=== PATIENT | female | born 1975 | race Caucasian/White ===

== ENCOUNTER 2017-10-05 19:53 | Inpatient (IN) | payer OTHER ==
[2017-10-05 20:25] VITALS: BMI 31.4
[2017-10-05] MEDS ORDERED: MELATONIN 5 MG TABLETS PO PRN (22:00)
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
[2017-10-05] MEDS ORDERED: P-EPHED 60MG/TRIPROLIDI 2.5MG TABLET PO PRN (23:57)
[2017-10-05] MEDS ORDERED: MENTHOL/PHENOL 1 EACH UD MM PRN (23:57)
[2017-10-05] MEDS ORDERED: MAG HYDROX/AL HYDROX/SIMETH 30 ML UNIT-DOSE CUP PO PRN (23:57)
[2017-10-05] MEDS ORDERED: guaiFENesin/D-METHORPHAN HB 10 ML UNIT-DOSE CUPS PO PRN (23:57)
[2017-10-05] MEDS ORDERED: MAGNESIUM HYDROX 2400MG/30ML ORAL SUSPENSION 30 ML CUP PO PRN (23:57)
[2017-10-05] MEDS ORDERED: NICOTINE POLACRILEX 2 MG GUM BC PRN (23:57)
[2017-10-05] MEDS ORDERED: MAGNESIUM CITRATE 300 ML BOTTLE PO PRN (23:57)
[2017-10-06] MEDS ORDERED: cloNIDine HCL 0.1 MG TABLET PO ONE (02:27)
[2017-10-06] MEDS: chlordiazePOXIDE HCL 25 MG CAPSULE PO PRN ×2 (02:36→11:17)
[2017-10-06] MEDS: chlordiazePOXIDE HCL 25 MG CAPSULE PO SCH ×4 (06:15→22:10)
[2017-10-06] MEDS: CYCLOBENZAPRINE HCL 5 MG TABLET PO SCH ×3 (07:15→22:10)
[2017-10-06] MEDS: GABAPENTIN 400 MG CAPSULE (FP) PO SCH ×3 (07:15→22:10)
--- NOTE | 2017-10-06 08:47 | EKG ---
Test Reason : Blood Pressure : / mmHG Vent. Rate : 092 BPM Atrial Rate : 092 BPM P-R Int : 148 ms QRS Dur : 088 ms QT Int : 390 ms P-R-T Axes : 060 001 041 degrees QTc Int : 482 ms NORMAL SINUS RHYTHM PROLONGED QT ABNORMAL ECG NO PREVIOUS ECGS AVAILABLE Confirmed by DIONI BERNAL, HARITHA ([id number]) on 10/06/2017 8:47:52 AM Referred By: Rigoberto Leonard Confirmed By:HARITHA WHEATLEY MD
[2017-10-06] MEDS ORDERED: HYDROCORTISONE 2.5% TOPICAL CREAM 30 GM TUBE TP SCH (10:00)
[2017-10-06 10:07] LABS: HEMOGLOBIN 11.1 GM/dL (10.7-15.3); MCH 29.4 pg (25.7-33.7); MCHC 33.7 g/dl (32.0-36.0); MEAN CELL VOLUME 87.4 fl (80-96); MEAN PLT VOLUME 7.7 fl (7.5-11.1); PLATELET COUNT 237 K/MM3 (134-434); RBC 3.77 M/mm3 (3.60-5.2); RDW 19.1 % (11.6-15.6); WHITE BLOOD COUNT 9.1 K/mm3 (4.0-10.0)
--- NOTE | 2017-10-06 10:07 | PN ---
S CIWA - CIWA Score Nausea/Vomitin Muscle Tremors: 3 Anxiety: 3 Agitation: 3 Paroxysmal Sweats: 2 Orientation: 0-Oriented Tacttile Disturbances: 1-Very Mild Itch/Numbness Auditory Disturbances: 1-Very Mild Visual Disturbances: 0-None Headache: 2-Mild CIWA-Ar Total Score: 18 [facility] Progress Note (SOAP) Subjective: ALERT,IRRITABLE,ANXIOUS,INTERRUPTED SLEEP,TREMOR Objective: 10/06/17 10:05 Vital Signs Temperature 97.1 F L 10/06/17 09:15 Pulse Rate 79 10/06/17 09:15 Respiratory Rate 18 10/06/17 07:08 Blood Pressure 137/84 10/06/17 09:15 O2 Sat by Pulse Oximetry (%) EKG NSR QT 392/474 NO CHEST PAIN,NO SOB,NO DIZZINESS LABS PENDING Assessment: 10/06/17 10:07 WITHDRAWAL SYMPTOM Plan: CONTINUE DETOX
[2017-10-06 10:54] LABS: CHLORIDE 103 mmol/L (98-107); POTASSIUM 3.5 mmol/L (3.5-5.1); SODIUM 142 mmol/L (136-145)
[2017-10-06] MEDS ORDERED: TRIMETHOBENZAMIDE HCL 200MG/2ML INJ IM ONE (10:56)
--- NOTE | 2017-10-06 10:59 | PN ---
[facility] Progress Note Note: VOMITING,WITHDRAWAL SYMPTOM,TIGAN 200 MGS IM ,ZOFRAN 0.4 MG SL PRN Q6H,CLOS MONITORING
[2017-10-06 11:07] LABS: ALBUMIN 2.8 g/dl (3.4-5.0); ALK PHOS 100 U/L (45-117); ANION GAP 13 (8-16); BILIRUBIN,TOTAL 1.9 mg/dL (0.2-1.0); BLOOD UREA NITROGEN 13 mg/dL (7-18); CALCIUM 7.3 mg/dL (8.5-10.1); CO2 26 mmol/L (21-32); CREATININE 0.5 mg/dL (0.55-1.02); GLUCOSE,RANDOM 81 mg/dL (74-106); SGOT/AST 80 U/L (15-37); SGPT/ALT 27 U/L (12-78); TOT PROT 5.4 g/dl (6.4-8.2)
[2017-10-06] MEDS: LISINOPRIL 20 MG TABLET (FP) PO SCH (11:18)
[2017-10-06] MEDS: METOPROLOL TARTRATE 25 MG TABLET (FP) PO SCH (11:18)
[2017-10-06] MEDS: PRENATAL VITAMINS W/ FOLIC ACID TABLET (FP) PO SCH (11:18)
[2017-10-06] MEDS: IBUPROFEN 400 MG TABLET (FP) PO PRN (12:25)
[2017-10-06] MEDS ORDERED: BENZOCAINE 28 GM HEMORRHOIDAL OINTMENT PR ONE (12:45)
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
--- NOTE | 2017-10-06 17:36 | EKG ---
Test Reason : Blood Pressure : / mmHG Vent. Rate : 088 BPM Atrial Rate : 088 BPM P-R Int : 154 ms QRS Dur : 088 ms QT Int : 392 ms P-R-T Axes : 061 006 035 degrees QTc Int : 474 ms NORMAL SINUS RHYTHM CANNOT RULE OUT ANTERIOR INFARCT , AGE UNDETERMINED ABNORMAL ECG WHEN COMPARED WITH ECG OF 06-OCT-2017 02:41, NO SIGNIFICANT CHANGE WAS FOUND Confirmed by DIONI BERNAL, HARITHA ([id number]) on 10/06/2017 5:36:10 PM Referred By: Rigoberto Leonard Confirmed By:HARITHA WHEATLEY MD
[2017-10-06] MEDS: ONDANSETRON *ODT* 4 MG TABLET SL PRN (17:43)
[2017-10-06] MEDS: LOPERAMIDE HCL 2 MG CAPSULE PO PRN (17:44)
[2017-10-06] MEDS: ACETAMINOPHEN 325 MG TABLET (FP) PO PRN (20:13)
[2017-10-06 21:05] LABS: URINE APPEARANCE CLOUDY; URINE BILIRUBIN NEGATIVE (<2.0 mg/dL); URINE COLOR YELLOW; URINE GLUCOSE (UA) NEGATIVE (NEGATIVE); URINE KETONE NEGATIVE (NEGATIVE); URINE NITRITE NEGATIVE (NEGATIVE); URINE UROBILINOGEN NEGATIVE mg/dL (0.2-1.0)
[2017-10-06 21:08] LABS: URINE LEUK ESTERASE 3+ (NEGATIVE); URINE PROTEIN 1+ (NEGATIVE)
[2017-10-06 21:09] LABS: EPI CELLS FEW /HPF (FEW); URINE BACTERIA RARE /hpf (NONE SEEN)
[2017-10-06] MEDS: THIAMINE HCL 100 MG TABLET (FP) PO SCH (22:10)
[2017-10-06] MEDS: QUEtiapine FUMARATE 100 MG TABLET (FP) PO SCH (22:10)
[2017-10-07] MEDS: IBUPROFEN 400 MG TABLET (FP) PO PRN ×2 (02:07→17:15)
[2017-10-07] MEDS ORDERED: ALBUTEROL SO4 2.5/IPRATROPIUM 0.5 INH SOL 3 ML VIAL.NEB. NEB PRN (02:14)
[2017-10-07] MEDS ORDERED: ALBUTEROL SO4 18 GM HFA INHALER IH ONE (02:15)
[2017-10-07] MEDS: hydrOXYzine PAMOATE 50 MG CAPSULE (FP) PO PRN ×2 (02:27→10:43)
[2017-10-07] MEDS: chlordiazePOXIDE HCL 25 MG CAPSULE PO SCH ×4 (06:22→22:14)
[2017-10-07] MEDS: CYCLOBENZAPRINE HCL 5 MG TABLET PO SCH ×3 (06:22→22:13)
[2017-10-07] MEDS: GABAPENTIN 400 MG CAPSULE (FP) PO SCH ×3 (06:22→22:13)
[2017-10-07] MEDS: PRENATAL VITAMINS W/ FOLIC ACID TABLET (FP) PO SCH (10:41)
[2017-10-07] MEDS: ONDANSETRON *ODT* 4 MG TABLET SL PRN (10:41)
[2017-10-07] MEDS: LISINOPRIL 20 MG TABLET (FP) PO SCH (10:41)
[2017-10-07] MEDS: BENZOCAINE 28 GM HEMORRHOIDAL OINTMENT PR SCH (11:25)
[2017-10-07] MEDS: METOPROLOL TARTRATE 25 MG TABLET (FP) PO SCH (11:25)
--- NOTE | 2017-10-07 12:45 | PN ---
S CIWA - CIWA Score Nausea/Vomitin Muscle Tremors: 3 Anxiety: 3 Agitation: 3 Paroxysmal Sweats: 1-Minimal Palms Moist Orientation: 0-Oriented Tacttile Disturbances: 1-Very Mild Itch/Numbness Auditory Disturbances: 1-Very Mild Visual Disturbances: 0-None Headache: 2-Mild CIWA-Ar Total Score: 17 [facility] Progress Note (SOAP) Subjective: alert,irritable,anxious,interrupted sleep,tremor Objective: 10/07/17 12:40 Vital Signs Temperature 97.2 F L 10/07/17 09:09 Pulse Rate 97 H 10/07/17 09:09 Respiratory Rate 16 10/07/17 09:09 Blood Pressure 111/74 10/07/17 09:09 O2 Sat by Pulse Oximetry (%) Laboratory Last Values WBC 9.1 K/mm3 (4.0-10.0) D 10/06/17 07:50 RBC 3.77 M/mm3 (3.60-5.2) 10/06/17 07:50 Hgb 11.1 GM/dL (10.7-15.3) 10/06/17 07:50 Hct 33.0 % (32.4-45.2) 10/06/17 07:50 MCV 87.4 fl (80-96) 10/06/17 07:50 MCH 29.4 pg (25.7-33.7) 10/06/17 07:50 MCHC 33.7 g/dl (32.0-36.0) 10/06/17 07:50 RDW 19.1 % (11.6-15.6) H 10/06/17 07:50 Plt Count 237 K/MM3 (134-434) D 10/06/17 07:50 MPV 7.7 fl (7.5-11.1) 10/06/17 07:50 Sodium 142 mmol/L (136-145) 10/06/17 07:50 Potassium 3.5 mmol/L (3.5-5.1) 10/06/17 07:50 Chloride 103 mmol/L (98-107) 10/06/17 07:50 Carbon Dioxide 26 mmol/L (21-32) 10/06/17 07:50 Anion Gap 13 (8-16) 10/06/17 07:50 BUN 13 mg/dL (7-18) 10/06/17 07:50 Creatinine 0.5 mg/dL (0.55-1.02) L 10/06/17 07:50 Creat Clearance w eGFR > 60 (>60) 10/06/17 07:50 Random Glucose 81 mg/dL (74-106) 10/06/17 07:50 Calcium 7.3 mg/dL (8.5-10.1) L 10/06/17 07:50 Total Bilirubin 1.9 mg/dL (0.2-1.0) H D 10/06/17 07:50 AST 80 U/L (15-37) H 10/06/17 07:50 ALT 27 U/L (12-78) 10/06/17 07:50 Alkaline Phosphatase 100 U/L (45-117) 10/06/17 07:50 Total Protein 5.4 g/dl (6.4-8.2) L 10/06/17 07:50 Albumin 2.8 g/dl (3.4-5.0) L 10/06/17 07:50 Urine Color Yellow 10/06/17 12:42 Urine Appearance Cloudy 10/06/17 12:42 Urine pH 7.0 (5.0-8.0) 10/06/17 12:42 Ur Specific [place] 1.008 (1.001-1.035) 10/06/17 12:42 Urine Protein 1+ (NEGATIVE) H 10/06/17 12:42 Urine Glucose (UA) Negative (NEGATIVE) 10/06/17 12:42 Urine Ketones Negative (NEGATIVE) 10/06/17 12:42 Urine Blood 1+ (NEGATIVE) H 10/06/17 12:42 Urine Nitrite Negative (NEGATIVE) 10/06/17 12:42 Urine Bilirubin Negative (<2.0 mg/dL) 10/06/17 12:42 Urine Urobilinogen Negative mg/dL (0.2-1.0) 10/06/17 12:42 Ur Leukocyte Esterase 3+ (NEGATIVE) H 10/06/17 12:42 Urine WBC (Auto) 167 /hpf (3-5) 10/06/17 12:42 Urine RBC (Auto) None /hpf (0-3) 10/06/17 12:42 Ur Epithelial Cells Few /HPF (FEW) 05/26/18 12:42 Urine Bacteria Rare /hpf (NONE SEEN) 10/06/17 12:42 RPR Titer Nonreactive (NONREACTIVE) 10/06/17 07:50 Assessment: 10/07/17 12:45 withdrawal symptom Plan: continue detox,urine for c/s,amoxicillin 500 mgs po tid for 7 days for uti
[2017-10-07] MEDS: AMOXICILLIN 500 MG CAPSULE (FP) PO SCH ×2 (15:01→22:12)
[2017-10-07] MEDS: THIAMINE HCL 100 MG TABLET (FP) PO SCH (22:13)
[2017-10-07] MEDS: QUEtiapine FUMARATE 100 MG TABLET (FP) PO SCH (22:13)
[2017-10-07] MEDS: ACETAMINOPHEN 325 MG TABLET (FP) PO PRN (22:14)
[2017-10-08] MEDS: CYCLOBENZAPRINE HCL 5 MG TABLET PO SCH ×3 (05:16→22:14)
[2017-10-08] MEDS: GABAPENTIN 400 MG CAPSULE (FP) PO SCH ×3 (05:16→22:14)
[2017-10-08] MEDS: chlordiazePOXIDE 5 MG CAPSULE PO SCH ×4 (05:19→22:11)
[2017-10-08] MEDS: AMOXICILLIN 500 MG CAPSULE (FP) PO SCH ×3 (06:32→22:10)
[2017-10-08] MEDS: hydrOXYzine PAMOATE 50 MG CAPSULE (FP) PO PRN (11:21)
[2017-10-08] MEDS: METOPROLOL TARTRATE 25 MG TABLET (FP) PO SCH (11:22)
[2017-10-08] MEDS: ONDANSETRON *ODT* 4 MG TABLET SL PRN (11:22)
[2017-10-08] MEDS: LISINOPRIL 20 MG TABLET (FP) PO SCH (11:22)
[2017-10-08] MEDS: PRENATAL VITAMINS W/ FOLIC ACID TABLET (FP) PO SCH (11:22)
[2017-10-08] MEDS: BENZOCAINE 28 GM HEMORRHOIDAL OINTMENT PR SCH (11:23)
[2017-10-08] MEDS: LOPERAMIDE HCL 2 MG CAPSULE PO PRN (12:02)
--- NOTE | 2017-10-08 12:02 | PN ---
S Progress Note (SOAP) Subjective: ALERT,IRRITABLE,ANXIOUS,PAIN IN THE ABDOMEN,NO VOMITING,PAIN IN SUPRAPUBIC AREA Objective: 10/08/17 12:00 Vital Signs Temperature 97.1 F L 10/08/17 09:16 Pulse Rate 112 H 10/08/17 09:16 Respiratory Rate 20 10/08/17 09:16 Blood Pressure 108/66 10/08/17 09:16 O2 Sat by Pulse Oximetry (%) Laboratory Last Values WBC 9.1 K/mm3 (4.0-10.0) D 10/06/17 07:50 RBC 3.77 M/mm3 (3.60-5.2) 10/06/17 07:50 Hgb 11.1 GM/dL (10.7-15.3) 10/06/17 07:50 Hct 33.0 % (32.4-45.2) 10/06/17 07:50 MCV 87.4 fl (80-96) 10/06/17 07:50 MCH 29.4 pg (25.7-33.7) 10/06/17 07:50 MCHC 33.7 g/dl (32.0-36.0) 10/06/17 07:50 RDW 19.1 % (11.6-15.6) H 10/06/17 07:50 Plt Count 237 K/MM3 (134-434) D 10/06/17 07:50 MPV 7.7 fl (7.5-11.1) 10/06/17 07:50 Sodium 142 mmol/L (136-145) 10/06/17 07:50 Potassium 3.5 mmol/L (3.5-5.1) 10/06/17 07:50 Chloride 103 mmol/L (98-107) 10/06/17 07:50 Carbon Dioxide 26 mmol/L (21-32) 10/06/17 07:50 Anion Gap 13 (8-16) 10/06/17 07:50 BUN 13 mg/dL (7-18) 10/06/17 07:50 Creatinine 0.5 mg/dL (0.55-1.02) L 10/06/17 07:50 Creat Clearance w eGFR > 60 (>60) 10/06/17 07:50 Random Glucose 81 mg/dL (74-106) 10/06/17 07:50 Calcium 7.3 mg/dL (8.5-10.1) L 10/06/17 07:50 Total Bilirubin 1.9 mg/dL (0.2-1.0) H D 10/06/17 07:50 AST 80 U/L (15-37) H 10/06/17 07:50 ALT 27 U/L (12-78) 10/06/17 07:50 Alkaline Phosphatase 100 U/L (45-117) 10/06/17 07:50 Total Protein 5.4 g/dl (6.4-8.2) L 10/06/17 07:50 Albumin 2.8 g/dl (3.4-5.0) L 10/06/17 07:50 Urine Color Yellow 10/06/17 12:42 Urine Appearance Cloudy 10/06/17 12:42 Urine pH 7.0 (5.0-8.0) 10/06/17 12:42 Ur Specific [place] 1.008 (1.001-1.035) 10/06/17 12:42 Urine Protein 1+ (NEGATIVE) H 10/06/17 12:42 Urine Glucose (UA) Negative (NEGATIVE) 10/06/17 12:42 Urine Ketones Negative (NEGATIVE) 10/06/17 12:42 Urine Blood 1+ (NEGATIVE) H 10/06/17 12:42 Urine Nitrite Negative (NEGATIVE) 10/06/17 12:42 Urine Bilirubin Negative (<2.0 mg/dL) 10/06/17 12:42 Urine Urobilinogen Negative mg/dL (0.2-1.0) 10/06/17 12:42 Ur Leukocyte Esterase 3+ (NEGATIVE) H 10/06/17 12:42 Urine WBC (Auto) 167 /hpf (3-5) 10/06/17 12:42 Urine RBC (Auto) None /hpf (0-3) 10/06/17 12:42 Ur Epithelial Cells Few /HPF (FEW) 10/06/17 12:42 Urine Bacteria Rare /hpf (NONE SEEN) 10/06/17 12:42 RPR Titer Nonreactive (NONREACTIVE) 10/06/17 07:50 Assessment: 10/08/17 12:02 WITHDRAWAL SYMPTOM Plan: CONTINUE DETOX
[2017-10-08] MEDS ORDERED: DIPHENOXYLATE 2.5/ATROPINE.025 1 COMBO TABLET PO ONE (12:48)
[2017-10-08] MEDS: IBUPROFEN 400 MG TABLET (FP) PO PRN (14:27)
[2017-10-08] MEDS: ACETAMINOPHEN 325 MG TABLET (FP) PO PRN (17:34)
[2017-10-08] MEDS: THIAMINE HCL 100 MG TABLET (FP) PO SCH (22:51)
[2017-10-08] MEDS: QUEtiapine FUMARATE 100 MG TABLET (FP) PO SCH (22:51)
[2017-10-09] MEDS: LOPERAMIDE HCL 2 MG CAPSULE PO PRN ×2 (01:10→10:35)
[2017-10-09] MEDS: IBUPROFEN 400 MG TABLET (FP) PO PRN (01:11)
[2017-10-09] MEDS: GABAPENTIN 400 MG CAPSULE (FP) PO SCH ×3 (05:59→23:16)
[2017-10-09] MEDS: AMOXICILLIN 500 MG CAPSULE (FP) PO SCH ×3 (05:59→23:15)
[2017-10-09] MEDS: chlordiazePOXIDE HCL 10 MG CAPSULE PO SCH ×4 (05:59→23:15)
[2017-10-09] MEDS: CYCLOBENZAPRINE HCL 5 MG TABLET PO SCH ×3 (05:59→23:15)
--- NOTE | 2017-10-09 09:26 | PN ---
S Progress Note (SOAP) Subjective: ALERT,ABDOMINAL PAIN IS LESS,RUNNING TEMPERATURE YESTERDAY,ON AMOXICILLIN 500 MGS PO TID FOR UTI URINE FOR C/S PENDING INTERRUPTED SLEEP Objective: 10/09/17 09:24 Vital Signs Temperature 96.4 F L 10/09/17 05:54 Pulse Rate 75 10/09/17 05:54 Respiratory Rate 18 10/09/17 05:54 Blood Pressure 104/65 10/09/17 05:54 O2 Sat by Pulse Oximetry (%) CBC,AMP,AMYLASE LIPASE PENDING Assessment: 10/09/17 09:25 WITHDRAWAL SYMPTOM Plan: CONTINUE DETOX,POSSIBLE DISCHARGE IN AM
[2017-10-09 09:53] LABS: HEMATOCRIT 31.6 % (32.4-45.2); HEMOGLOBIN 10.7 GM/dL (10.7-15.3); MCH 29.6 pg (25.7-33.7); MCHC 33.8 g/dl (32.0-36.0); MEAN CELL VOLUME 87.7 fl (80-96); MEAN PLT VOLUME 8.9 fl (7.5-11.1); PLATELET COUNT 106 K/MM3 (134-434); WHITE BLOOD COUNT 5.1 K/mm3 (4.0-10.0)
[2017-10-09 10:03] LABS: CHLORIDE 99 mmol/L (98-107); POTASSIUM 3.5 mmol/L (3.5-5.1); SODIUM 134 mmol/L (136-145)
[2017-10-09 10:21] LABS: ALK PHOS 168 U/L (45-117); AMYLASE 9 U/L (25-115); ANION GAP 10 (8-16); BILIRUBIN,TOTAL 0.4 mg/dL (0.2-1.0); BLOOD UREA NITROGEN 38 mg/dL (7-18); CALCIUM 7.3 mg/dL (8.5-10.1); CO2 25 mmol/L (21-32); CREATININE 2.2 mg/dL (0.55-1.02); GLUCOSE,RANDOM 78 mg/dL (74-106); LIPASE 22 U/L (73-393); SGOT/AST 35 U/L (15-37); SGPT/ALT 15 U/L (12-78); TOT PROT 5.1 g/dl (6.4-8.2)
[2017-10-09 10:30] VITALS: BP 109/74; PULSE 86; TEMP 97.9
[2017-10-09] MEDS: PRENATAL VITAMINS W/ FOLIC ACID TABLET (FP) PO SCH (10:32)
[2017-10-09] MEDS: METOPROLOL TARTRATE 25 MG TABLET (FP) PO SCH (10:32)
[2017-10-09] MEDS: BENZOCAINE 28 GM HEMORRHOIDAL OINTMENT PR SCH (10:32)
[2017-10-09] MEDS: ONDANSETRON *ODT* 4 MG TABLET SL PRN (10:32)
[2017-10-09] MEDS: LISINOPRIL 20 MG TABLET (FP) PO SCH (10:32)
[2017-10-09] MEDS: ACETAMINOPHEN 325 MG TABLET (FP) PO PRN (10:37)
[2017-10-09] MEDS ORDERED: SUMAtriptan SUCCINATE 25 MG TABLET PO ONE (10:48)
--- NOTE | 2017-10-09 11:19 | PN ---
[facility] Progress Note Note: Laboratory Results - last 24 hr 10/09/17 10/09/17 07:00 07:00 WBC 5.1 D RBC 3.60 Hgb 10.7 Hct 31.6 L MCV 87.7 MCH 29.6 MCHC 33.8 RDW 19.0 H Plt Count 106 L D MPV 8.9 D Sodium 134 L Potassium 3.5 Chloride 99 Carbon Dioxide 25 Anion Gap 10 BUN 38 H D Creatinine 2.2 H Creat Clearance w eGFR 24.48 Random Glucose 78 Calcium 7.3 L Total Bilirubin 0.4 D AST 35 ALT 15 Alkaline Phosphatase 168 H Total Protein 5.1 L Albumin 2.0 L Total Amylase 9 L Lipase 22 L DEHYDRATED WITH DIARRHEA URINE FOR C/S SHOWED LACTOSE FERMENTING NEGATIVE BACILLI IMPRESSION DEHYDRATION RENAL INSUFFICIENCY R/O UROSEPSIS ALCOHOL DEPENDENCE WITH UNCOMPLICATED WITHDRAWAL ASTHMA UTI TREATMENT TO ER AT [facility] FOR EVALUATION AND TREATMENT SPOKE WITH DR GALEANO PATIENT TO BE TRANSFERRED TO [facility] ER FOR EVALUATION AND TREATMENT BY [facility] Vital Signs Temperature 97.9 F 10/09/17 10:29 Pulse Rate 86 10/09/17 10:29 Respiratory Rate 18 10/09/17 10:29 Blood Pressure 109/74 10/09/17 10:29 O2 Sat by Pulse Oximetry (%)
[2017-10-09] MEDS: THIAMINE HCL 100 MG TABLET (FP) PO SCH (23:16)
[2017-10-09] MEDS: QUEtiapine FUMARATE 100 MG TABLET (FP) PO SCH (23:16)
== END 2017-10-10 00:30 | disposition short-term general hospital (02) | DRG 775 ==
LOC: YASAS 19:53 → Y6N 22:51
PROVIDERS: ADMIT Surgery; ATTEND Surgery
PROC: HZ2ZZZZ Detoxification Services for Substance Abuse Treatment (ICD-10-PCS; principal; 2017-10-05)
DX: F10.230 Alcohol dependence with withdrawal, uncomplicated (principal); F17.210 Nicotine dependence, cigarettes, uncomplicated; F31.9 Bipolar disorder, unspecified; F19.24 Other psychoactive substance dependence with psychoactive substance-induced mood disorder; G47.00 Insomnia, unspecified; E86.0 Dehydration; I25.2 Old myocardial infarction; I10 Essential (primary) hypertension; L30.9 Dermatitis, unspecified; J45.20 Mild intermittent asthma, uncomplicated; M54.9 Dorsalgia, unspecified; N39.0 Urinary tract infection, site not specified; Z59.0 Homelessness
CPT/HCPCS: 36415; 80053; 81003; 81015; 82150; 83690; 85027; 86593; 87086; 87186; 93005; 93010; 94640; J0735; J7620; Q0162

== ENCOUNTER 2017-10-09 12:25 | Inpatient (IN) | payer OTHER ==
[2017-10-09 12:46] VITALS: BP 96/54; PULSE 96; TEMP 98.8; BMI 31.4
--- NOTE | 2017-10-09 13:05 | PDOC ---
History of Present Illness - General Chief Complaint: Pain Stated Complaint: DIARRHEA Time Seen by Provider: 10/09/17 12:52 History Source: Patient Exam Limitations: No Limitations - History of Present Illness Initial Comments: 10/09/17 13:32 Patient is a 41F with history of alcohol abuse, PE/DVT (last month at [facility] on warfarin), asthma, HTN and migraines here today complaining of abdominal pain for the past several weeks. She was evaluated first at [facility] where she was found to have an HEAVEN and UTI, UC is positive for lactose fermenting gram negative bacilli. Patient endorses associated nausea, vomiting, diarrhea. Patient was given amoxicillin at [facility]. Endorses fevers, chills. Denies chest pain, shortness of breath. Past History - Past Medical History Allergies/Adverse Reactions: Allergies Allergy/AdvReac Type Severity Reaction Status Date / Time lactose Allergy Severe Vomiting Verified 10/09/17 12:42 peanut Allergy Severe Hives Verified 10/09/17 12:42 Home Medications: Ambulatory Orders Quetiapine Fumarate [Seroquel -] 100 mg PO HS #30 tab 04/28/15 Gabapentin 800 mg PO TID 10/05/17 Lisinopril [Prinivil] 20 mg PO DAILY 10/05/17 Acetaminophen [Tylenol] 650 mg PO Q4H PRN 10/09/17 Amoxicillin - [Amoxicillin 500mg Capsule -] 500 mg PO TID 10/09/17 Cyclobenzaprine HCl 5 mg PO TID 10/09/17 Diphenoxylate HCl/Atropine [Lomotil Tablet] 1 each PO ASDIR 10/09/17 Metoprolol Tartrate [Lopressor -] 25 mg PO DAILY 10/09/17 Vit 108/Iron/Folic AC [ One Tablet] 1 each PO DAILY 10/09/17 Sumatriptan Succinate [Imitrex] 25 mg PO ASDIR 10/09/17 Asthma: Yes (No recent relapse) Cardiac Disorders: Yes (Heart attack at age 32) COPD: No Diabetes: No GI Disorders: No Disorders: No HTN: Yes (on meds) Kidney Stones: No Liver Disease: No Psychiatric Problems: Yes (BIPOLAR ANXIETY DEPRESSION) Seizures: No Thyroid Disease: No Other medical history: DVT PE - Surgical History Abdominal Surgery: Yes (GASTRIC BYPASS 2006) Appendectomy: No Cardiac Surgery: No Cholecystectomy: No Lung Surgery: No Neurologic Surgery: No Orthopedic Surgery: No - Suicide/Smoking/Psychosocial Hx Smoking History: Current some day smoker Have you smoked in the past 12 months: Yes Number of Cigarettes Smoked Daily: 2 Information on smoking cessation initiated: No 'Breaking Loose' booklet given: 10/05/17 Hx Alcohol Use: Yes Drug/Substance Use Hx: No Substance Use Type: Alcohol Hx Substance Use Treatment: Yes (Detox ) Review of Systems - Review of Systems Comments:: 10/09/17 14:43 GENERAL/CONSTITUTIONAL: Positive for fever or chills. No weakness. HEAD, EYES, EARS, NOSE AND THROAT: No change in vision. No sore throat. CARDIOVASCULAR: No chest pain or shortness of breath RESPIRATORY: No cough, wheezing, or hemoptysis. GASTROINTESTINAL: Positive for nausea, vomiting, diarrhea. GENITOURINARY: Positive for dysuria, frequency. MUSCULOSKELETAL: No joint or muscle swelling or pain. No neck or back pain. SKIN: No rash NEUROLOGIC: No headache, vertigo, loss of consciousness, or change in strength/ sensation. HEMATOLOGIC/LYMPHATIC: No anemia, easy bleeding. ALLERGIC/IMMUNOLOGIC: No hives or skin allergy. *Physical Exam - Vital Signs Last Vital Signs Temp Pulse Resp BP Pulse Ox 98.8 F 96 H 20 96/54 100 10/09/17 12:42 10/09/17 12:42 10/09/17 12:42 10/09/17 12:42 10/09/17 12:42 - Physical Exam Comments: 10/09/17 14:44 GENERAL: Awake, alert, and fully oriented, in no acute distress HEAD: No signs of trauma, normocephalic, atraumatic EYES: PERRLA, EOMI, sclera anicteric, conjunctiva clear ENT: Auricles normal inspection, hearing grossly normal, nares patent, oropharynx clear without exudates. Moist mucosa NECK: Normal ROM, supple, no lymphadenopathy, JVD, or masses LUNGS: No distress, speaks full sentences, clear to auscultation bilaterally HEART: Regular rate and rhythm, normal S1 and S2, no murmurs, rubs or gallops, peripheral pulses normal and equal bilaterally. ABDOMEN: +suprapubic tenderness. No CVA tenderness. No guarding, no rebound. No masses EXTREMITIES: Normal inspection, Normal range of motion, no edema. No clubbing or cyanosis. NEUROLOGICAL: Cranial nerves II through XII grossly intact. Normal speech, normal gait, no focal sensorimotor deficits SKIN: Warm, Dry, normal turgor, no rashes or lesions noted. ED Treatment Course - RADIOLOGY Radiology Studies Ordered: Category Date Time Status CHEST X-RAY PORTABLE* [RAD] Stat Radiology 10/09/17 13:02 Ordered Medical Decision Making - Medical Decision Making 10/09/17 13:04 Labs from [facility] today: Laboratory Tests 10/06/17 10/09/17 10/09/17 12:42 07:00 07:00 WBC 5.1 D Hgb 10.7 Plt Count 106 L D BUN 38 H D Creatinine 2.2 H Ur Leukocyte Esterase 3+ H Urine WBC (Auto) 167 CBC normal. Patient has HEAVEN. UA positive, UC positive for gram neg lactose fermenting. Will add blood cultures, cxr, serum preg. Will treat with ceftriaxone, zofran and 1L. 10/09/17 14:45 Patient is 41F with history of alcohol abuse, PE, asthma and HTN here today with UTI. Vital signs stable and normal. PE not consistent with pyelonephritis. Given 1L of ceftriaxone and 1L of NS, will admit. 10/09/17 15:12 Heparin drip and heparin bolus given. Patient accpeted to med surg via Sabrina Sgroe to med/surg. *DC/Admit/Observation/Transfer Diagnosis at time of Disposition: UTI (urinary tract infection), HEAVEN (acute kidney injury) - Discharge Dispostion Condition at time of disposition: Stable Decision to Admit order: Yes - Referrals - Patient Instructions - Post Discharge Activity
--- NOTE | 2017-10-09 13:38 | PDOC ---
Attending Attestation - Resident Resident Name: Noel Duong - ED Attending Attestation I have performed the following: I have examined & evaluated the patient, The case was reviewed & discussed with the resident, I agree w/resident's findings & plan - HPI HPI: 10/09/17 13:33 41y/o F recently discharged to [facility] from [place], where she was admitted for DVT/PE on coumadin, sent to [facility] for etoh detox presents from [facility] for UTI with + culture (started on oral amoxicillin there) and worsening abd/back pain and diarrhea. - Physicial Exam PE: 10/09/17 13:36 Vitals as noted, afebrile Alert, no acute distress Abdomen is slightly distended but soft, diffuse discomfort to palpation without guarding or rebound No CVA tenderness - Medical Decision Making 10/09/17 13:37 41-year-old female from [facility] with UTI, worsening abdominal pain/diarrhea in light of recent hospitalizations. Likely worsening UTI/cystitis, we'll send urine culture and broaden antibiotic coverage. Persistent diarrhea in light of recent admission, rule out C. difficile. Labs, urinalysis, urine culture IV fluid rehydration IV antibiotics Labs show acute renal insufficiency with creatinine of 2.2, up from normal. We' ll proceed with admission. Heart Score/ECG Review #1 ECG reviewed & interpreted by me at: 13:53 General ECG Interpretation: Sinus Rhythm, Normal Rate (86), Normal Intervals ( qtc 452), No acute ischemic changes
[2017-10-09 13:42] LABS: INR 1.13 (0.82-1.09); PROTHROMBIN TIME (PATIENT) 12.8 SEC (9.7-13.0)
[2017-10-09] MEDS ORDERED: CEFTRIAXONE 1,000 MG in DEXTROSE 5%-WATER - 50 ML IVPB ONE (14:40)
[2017-10-09] MEDS ORDERED: SODIUM CHLORIDE 1,000 ML IV STA (14:40)
[2017-10-09] MEDS ORDERED: CEFTRIAXONE 1 GM/50 ML BAG ONE (14:49)
[2017-10-09] MEDS ORDERED: ACETAMINOPHEN 325 MG TABLET (FP) PO ONE (14:57)
[2017-10-09] MEDS ORDERED: HEPARIN NA (PORCINE) 5,000 UNITS/ML 1ML VIAL IVPUSH PRN ×3 (15:05→15:09)
[2017-10-09] MEDS ORDERED: HEPARIN NA (PORCINE) 5,000 UNITS/ML 1ML VIAL IVPUSH ONE (15:10)
[2017-10-09] MEDS ORDERED: ACETAMINOPHEN 325 MG TABLET (FP) ONE (15:12)
[2017-10-09] MEDS ORDERED: HEPARIN - 25,000 UNIT in SODIUM CHLORIDE 495 ML IV SCH (15:15)
[2017-10-09] MEDS ORDERED: HEPARIN NA (PORCINE) 5,000 UNITS/ML 1ML VIAL ONE (15:36)
[2017-10-09] MEDS ORDERED: HEPARIN INFUSION - 25,000 UNITS/500 ML INFUS.BAG IVPB ONE (15:36)
--- NOTE | 2017-10-09 15:59 | HP ---
CHIEF COMPLAINT: PCP: none HISTORY OF PRESENT ILLNESS: This is a 41 year old female with PMHx of recently diagnosed PE/DVT (3 weeks ago , on Coumadin), HTN, depression, asthma, alcohol abuse, who presented to the ED from [facility] for abdominal pain and was found to have UTI and HEAVEN. The patient was accepted for admission. Upon evaluating the patient, she states that she does not want to stay in the hospital and that she would like to leave against medical advice. The patient has the capacity to make her own decisions. The patient verbalizes an understanding that she is being admitted for a work up of her acute kidney injury, UTI, and supratherapeutic INR on Coumadin for PE/ DVT. The patient is declining all workup at this time. The patient states she will go to [facility] after leaving here. The patient is declining giving me a pharmacy to send medications to stating "I don't want any medications". The patient is aware that if she leaves her UTI untreated she can become septic and there is a risk of dying. The patient is aware that if she is not on anticoagulation for PE/DVT that there is a risk of . The patient is aware that if she denies any workup for HEAVEN that she can potentially have worsening kidney failure which can be irreversible causing the patient to require dialysis. The patient verbalizes and understanding and is still requesting to sign out against medical advice. Allergies lactose Allergy (Severe, Verified 10/09/17 12:42) Vomiting peanut Allergy (Severe, Verified 10/09/17 12:42) Hives HOME MEDICATIONS: Home Medications Medication Instructions Recorded Quetiapine Fumarate [Seroquel -] 100 mg PO HS #30 tab 04/28/15 Gabapentin 800 mg PO TID 10/05/17 Lisinopril [Prinivil] 20 mg PO DAILY 10/05/17 Acetaminophen [Tylenol] 650 mg PO Q4H PRN 10/09/17 Amoxicillin - [Amoxicillin 500mg 500 mg PO TID 10/09/17 Capsule -] Cyclobenzaprine HCl 5 mg PO TID 10/09/17 Diphenoxylate HCl/Atropine 1 each PO ASDIR 10/09/17 [Lomotil Tablet] Metoprolol Tartrate [Lopressor -] 25 mg PO DAILY 10/09/17 Vit 108/Iron/Folic AC 1 each PO DAILY 10/09/17 [ One Tablet] Sumatriptan Succinate [Imitrex] 25 mg PO ASDIR 10/09/17 REVIEW OF SYSTEMS Unable to obtain, patient refused. Is leaving AMA PHYSICAL EXAMINATION Vital Signs - 24 hr 10/09/17 12:42 Temperature 98.8 F Pulse Rate 96 H Respiratory 20 Rate Blood Pressure 96/54 O2 Sat by Pulse 100 Oximetry (%) Patient refused physical exam. Laboratory Results - last 24 hr 10/09/17 10/09/17 10/09/17 13:03 13:03 13:05 PT with INR 12.80 INR 1.13 PTT (Actin FS) 34.4 Serum , Qual Negative Please see HPI Visit type - Emergency Visit Emergency Visit: Yes ED Registration Date: 10/09/17 Care time: The patient presented to the Emergency Department on the above date and was hospitalized for further evaluation of their emergent condition. - New Patient This patient is new to me today: Yes Date on this admission: 10/09/17 - Critical Care Critical Care patient: No Hospitalist Screening - Colonoscopy Questionnaire Colonoscopy Questionnaire: Colonoscopy Questionnaire - Patient: 50 - 75 years old and never had a screening colonoscopy: Unknown History of colon or rectal polyps, or CA: Unknown History of IBD, Crohn's disease or UC: Unknown History of abdominal radiation therapy as a child: Unknown - Relative: 1 with colon or rectal CA, or polyps at age 60 or younger: Unknown Colon or rectal CA diagnosed at age 45 or younger: Unknown Multiple relatives with colon or rectal CA: Unknown - Outcome: Screening Result: Negative Screen
--- NOTE | 2017-10-09 17:27 | DS ---
Physical Exam: SUBJECTIVE: Patient seen and examined OBJECTIVE: Vital Signs Period Temp Pulse Resp BP Sys/Pelletier Pulse Ox Last 24 Hr 98.8 F 96 20 96/54 100 PHYSICAL EXAM Patient refused LABS Laboratory Results - last 24 hr 10/09/17 10/09/17 10/09/17 13:03 13:03 13:05 PT with INR 12.80 INR 1.13 PTT (Actin FS) 34.4 Serum , Qual Negative HOSPITAL COURSE: Date of Admission:10/09/17 Date of Discharge: 10/09/17 Minutes to complete discharge: 35 Discharge Summary Reason For Visit: UTI Current Active Problems HEAVEN (acute kidney injury) (Acute) Alcohol dependence with withdrawal (Acute) Dehydration (Acute) Insomnia (Acute) Low back pain at multiple sites (Acute) Nicotine dependence (Acute) Substance induced mood disorder (Acute) UTI (urinary tract infection) (Acute) Bipolar disorder (Chronic) Bronchial asthma (Chronic) Eczema (Chronic) HTN (hypertension) (Chronic) Nicotine use disorder (Chronic) Hospital Course: This is a 41 year old female with PMHx of recently diagnosed PE/DVT (3 weeks ago , on Coumadin), HTN, depression, asthma, alcohol abuse, who presented to the ED from [facility] for abdominal pain and was found to have UTI and HEAVEN. The patient was accepted for admission. Upon evaluating the patient, she states that she does not want to stay in the hospital and that she would like to leave against medical advice. The patient has the capacity to make her own decisions. The patient verbalizes an understanding that she is being admitted for a work up of her acute kidney injury, UTI, and supratherapeutic INR on Coumadin for PE/ DVT. The patient is declining all workup at this time. The patient states she will go to [facility] after leaving here. The patient is declining giving me a pharmacy to send medications to stating "I don't want any medications". The patient is aware that if she leaves her UTI untreated she can become septic and there is a risk of dying. The patient is aware that if she is not on anticoagulation for PE/DVT that there is a risk of . The patient is aware that if she denies any workup for HEAVEN that she can potentially have worsening kidney failure which can be irreversible causing the patient to require dialysis. The patient verbalizes and understanding and is still requesting to sign out against medical advice. Condition: Unchanged/Unknown - Instructions Diet, Activity, Other Instructions: You are leaving against medical advice. Please follow-up with your primary care provider within 24 hours for further management of your urinary tract infection , acute kidney injury, and for further discussion regarding starting an oral anticoagulant for your pulmonary embolism and deep vein thrombosis. You will need to have a complete metabolic panel drawn to check your creatinine. You will need to have an INR drawn and then you will need your primary care provider to send a prescription for an anticoagulation sent to your pharmacy. You will also need your primary care provider to send a prescription for an antibiotic to your pharmacy. Referrals: Gómez Gomez MD [Staff Physician] - Disposition: AGAINST MEDICAL ADVICE - Home Medications Comprehensive Discharge Medication List: Ambulatory Orders Quetiapine Fumarate [Seroquel -] 100 mg PO HS #30 tab 04/28/15 Gabapentin 800 mg PO TID 10/05/17 Lisinopril [Prinivil] 20 mg PO DAILY 10/05/17 Acetaminophen [Tylenol] 650 mg PO Q4H PRN 10/09/17 Amoxicillin - [Amoxicillin 500mg Capsule -] 500 mg PO TID 10/09/17 Cyclobenzaprine HCl 5 mg PO TID 10/09/17 Diphenoxylate HCl/Atropine [Lomotil Tablet] 1 each PO ASDIR 10/09/17 Metoprolol Tartrate [Lopressor -] 25 mg PO DAILY 10/09/17 Vit 108/Iron/Folic AC [ One Tablet] 1 each PO DAILY 10/09/17 Sumatriptan Succinate [Imitrex] 25 mg PO ASDIR 10/09/17
--- NOTE | 2017-10-10 09:47 | EKG ---
Test Reason : Blood Pressure : / mmHG Vent. Rate : 086 BPM Atrial Rate : 086 BPM P-R Int : 158 ms QRS Dur : 088 ms QT Int : 378 ms P-R-T Axes : 036 002 017 degrees QTc Int : 452 ms NORMAL SINUS RHYTHM CANNOT RULE OUT ANTERIOR INFARCT (CITED ON OR BEFORE 06-OCT-2017) ABNORMAL ECG WHEN COMPARED WITH ECG OF 06-OCT-2017 08:43, NO SIGNIFICANT CHANGE WAS FOUND Confirmed by HARITHA WHEATLEY MD ([id number]) on 10/10/2017 9:47:33 AM Referred By: Confirmed By:HARITHA WHEATLEY MD
--- NOTE | 2017-10-10 11:36 | PDOC ---
Patient Follow-up (Call Back) - Post ED Follow - Up Condition at time of discharge: Unchanged/Unknown Disposition at time of original discharge: AGAINST MEDICAL ADVICE Reason for Call Back: Abnwl. Microbiology (GNR in blood cx 05/17 bottles. Pt called back at )
== END 2017-10-09 17:44 | disposition left against medical advice (07) | DRG 460 ==
LOC: JER 12:25 → JERBED 15:28
PROVIDERS: ADMIT Internal Medicine; ATTEND Registered Nurse
DX: N17.9 Acute kidney failure, unspecified (principal); N39.0 Urinary tract infection, site not specified; J45.909 Unspecified asthma, uncomplicated; I10 Essential (primary) hypertension; F17.210 Nicotine dependence, cigarettes, uncomplicated; F31.89 Other bipolar disorder; F10.20 Alcohol dependence, uncomplicated
CPT/HCPCS: 36415; 71045-TC-FY; 84703; 85610; 85730; 87040; 87186; 93005; 93010; 99283-25; J1644; J7030

== ENCOUNTER 2017-10-10 21:38 | Emergency (ER) | payer OTHER ==
[2017-10-10 22:18] VITALS: BMI 30.9
--- NOTE | 2017-10-10 22:42 | PDOC ---
History of Present Illness - General Chief Complaint: Alcohol intoxication Stated Complaint: Alcohol intoxication Time Seen by Provider: 10/10/17 22:24 History Source: Patient - History of Present Illness Initial Comments: 10/11/17 04:15 41 year old female with PMHx of recently diagnosed PE/DVT (3 weeks ago, on Coumadin), HTN, depression, asthma, alcohol abuse, UTI with recent HEAVEN who presented to the ED on 10/09/2017 refused all care during the admission. patient was seen at [facility] 10/10 patient eloped with IV in place. patient to this ER with alcohol intoxication with slurred speech, alcohol on breath responsive t tactile stimuli. patient refuses physical exam. denies fall or head injury. 10/11/17 04:35 Past History - Past Medical History Allergies/Adverse Reactions: Allergies Allergy/AdvReac Type Severity Reaction Status Date / Time lactose Allergy Severe Vomiting Verified 10/11/17 23:14 peanut Allergy Severe Hives Verified 10/11/17 23:14 Home Medications: Ambulatory Orders Quetiapine Fumarate [Seroquel -] 100 mg PO HS #30 tab 04/28/15 Gabapentin 800 mg PO TID 10/05/17 Lisinopril [Prinivil] 20 mg PO DAILY 10/05/17 Acetaminophen [Tylenol] 650 mg PO Q4H PRN 10/09/17 Cyclobenzaprine HCl 5 mg PO TID 10/09/17 Diphenoxylate HCl/Atropine [Lomotil Tablet] 1 each PO ASDIR 10/09/17 Metoprolol Tartrate [Lopressor -] 25 mg PO DAILY 10/09/17 Vit 108/Iron/Folic AC [ One Tablet] 1 each PO DAILY 10/09/17 Sumatriptan Succinate [Imitrex] 25 mg PO ASDIR 10/09/17 Amoxicillin/Potassium Clav [Augmentin 875-125 Tablet] 1 each PO BID #20 tablet 10/11/17 Warfarin Sodium [Coumadin] 5 mg PO DAILY #30 tablet 10/14/17 levoFLOXacin [Levaquin -] 500 mg PO DAILY #14 tablet 10/14/17 Asthma: Yes (No recent relapse) Cardiac Disorders: Yes (Heart attack at age 32) COPD: No Diabetes: No GI Disorders: No Disorders: No HTN: Yes (on meds) Kidney Stones: No Liver Disease: No Psychiatric Problems: Yes (BIPOLAR ANXIETY DEPRESSION) Seizures: No Thyroid Disease: No - Surgical History Abdominal Surgery: Yes (GASTRIC BYPASS 2006) Appendectomy: No Cardiac Surgery: No Cholecystectomy: No Lung Surgery: No Neurologic Surgery: No Orthopedic Surgery: No - Suicide/Smoking/Psychosocial Hx Smoking History: Unknown if ever smoked Have you smoked in the past 12 months: No Number of Cigarettes Smoked Daily: 2 Information on smoking cessation initiated: No 'Breaking Loose' booklet given: 10/05/17 Hx Alcohol Use: No Drug/Substance Use Hx: No Substance Use Type: Alcohol Hx Substance Use Treatment: Yes (Detox ) Review of Systems - Review of Systems Able to Perform ROS?: Yes Is the patient limited Japanese proficient: No Constitutional: No: Symptoms Reported, See HPI, Chills, Diaphoresis, Fever, Loss of Appetite, Malaise, Night Sweats, Weakness, Weight Stable, Unintentional Wgt. Loss, Unexplained wgt Loss, Other ABD/GI: No: Symptoms Reported, See HPI, Abdominal Distended, Abd. Pain w/ defecation, Blood Streaked Bowels, Constipated, Diarrhea, Difficulty Swallowing , Nausea, Poor Appetite, Poor Fluid Intake, Rectal Bleeding, Vomiting, Indigestion, Abdominal cramping, Tarry Stools, Other : No: Symptoms Reported, See HPI, Burning, Dysuria, Discharge, Frequency, Flank Pain, Hematuria, Incontinence, Pain, Urgency, Testicular Mass, Testicular Swelling, Lesions, Testicular Pain, Other *Physical Exam - Vital Signs Last Vital Signs Temp Pulse Resp BP Pulse Ox 97.8 F 111 H 16 104/57 93 L 10/10/17 21:47 10/10/17 21:47 10/10/17 21:47 10/10/17 21:47 10/10/17 21:47 - Physical Exam General Appearance: Yes: Disheveled, Alcohol on Breath Respiratory/Chest: positive: Lungs Clear, Normal Breath Sounds, Respiratory Distress Cardiovascular: positive: Regular Rhythm, Regular Rate Gastrointestinal/Abdominal: positive: Normal Bowel Sounds, Soft. negative: Tender Extremity: positive: Normal Capillary Refill, Normal Inspection, Normal Range of Motion Integumentary: positive: Normal Color, Dry, Warm Neurologic: positive: Fully Oriented, Alert, Normal Mood/Affect Medical Decision Making - Medical Decision Making 10/11/17 aLCOHOL INTOXICATION p: WILL AWAIT SOBRIETY v/s FINGER STICK 05/31/18 05:51 Patient is alert shaky, feeling cold . temp 98.1 likely withdrawal symptoms. Librium X1 no slurred speech. patient reports that she has not picked up her medication for UTI. will give dose of augmentin PO. tylenol for bodyache. *DC/Admit/Observation/Transfer Diagnosis at time of Disposition: Alcohol abuse Alcohol intoxication Qualifiers: Complication of substance-induced condition: uncomplicated Qualified Code(s): F10.920 - Alcohol use, unspecified with intoxication, uncomplicated UTI (urinary tract infection) Qualifiers: Urinary tract infection type: acute cystitis Hematuria presence: without hematuria Qualified Code(s): N30.00 - Acute cystitis without hematuria - Discharge Dispostion Disposition: HOME - Prescriptions Prescriptions: Amoxicillin/Potassium Clav [Augmentin 875-125 Tablet] 1 each PO BID #20 tablet - Referrals - Patient Instructions Printed Discharge Instructions: DI for Alcohol Abuse Additional Instructions: please start Augmentin as prescribed. refrain from alcohol use - Post Discharge Activity
[2017-10-11] MEDS ORDERED: AMOX TR/POT CLAV 875MG/125MG TABLETS (FP) PO ONE (05:49)
[2017-10-11] MEDS ORDERED: ACETAMINOPHEN 325 MG TABLET (FP) PO ONE (05:49)
[2017-10-11 05:50] VITALS: TEMP 98.1
[2017-10-11] MEDS ORDERED: chlordiazePOXIDE HCL 25 MG CAPSULE PO ONE (05:50)
[2017-10-11] MEDS ORDERED: ACETAMINOPHEN 325 MG TABLET (FP) ONE (05:52)
[2017-10-11] MEDS ORDERED: AMOX TR/POT CLAV 875MG/125MG TABLETS (FP) ONE (05:53)
[2017-10-11] MEDS ORDERED: chlordiazePOXIDE HCL 25 MG CAPSULE ONE (05:53)
[2017-10-11 06:27] VITALS: BP 136/84; PULSE 110
== END 2017-10-11 07:04 | disposition home or self-care (01) ==
LOC: JER 21:38
DX: F10.120 Alcohol abuse with intoxication, uncomplicated (principal); N30.00 Acute cystitis without hematuria; I25.2 Old myocardial infarction; I10 Essential (primary) hypertension; F31.9 Bipolar disorder, unspecified; J45.909 Unspecified asthma, uncomplicated; Z86.718 Personal history of other venous thrombosis and embolism; Z86.711 Personal history of pulmonary embolism; Z79.01 Long term (current) use of anticoagulants; Z59.0 Homelessness
CPT/HCPCS: 82962; 99282-25

== ENCOUNTER 2017-10-11 20:57 | Inpatient (IN) | payer OTHER ==
[2017-10-11] MEDS ORDERED: CEFTRIAXONE 1,000 MG in DEXTROSE 5%-WATER - 50 ML IVPB ONE (21:08)
--- NOTE | 2017-10-11 21:34 | PDOC ---
History of Present Illness - General Stated Complaint: Alcohol intoxication Time Seen by Provider: 10/11/17 21:02 History Source: Patient, Old Records Exam Limitations: Intoxication - History of Present Illness Initial Comments: 10/11/17 21:31 This is a 41-year-old woman with past medical history of EtOH abuse, PE/DVT ( last month at [facility] on warfarin), asthma, HTN and migraines who presents emergency Department with alcohol intoxication. Patient does not remember how much he drank today but states that it is "not enough to get me drunk." Patient was seen and evaluated in this emergency department multiple times over the past week and was found to have a urinary tract infection with positive blood cultures showing Escherichia coli. Patient denies fevers, chills, abdominal pain , nausea, vomiting, dysuria, hematuria. Past History - Past Medical History Allergies/Adverse Reactions: Allergies Allergy/AdvReac Type Severity Reaction Status Date / Time lactose Allergy Severe Vomiting Verified 10/11/17 23:14 peanut Allergy Severe Hives Verified 10/11/17 23:14 Home Medications: Ambulatory Orders Quetiapine Fumarate [Seroquel -] 100 mg PO HS #30 tab 04/28/15 Gabapentin 800 mg PO TID 10/05/17 Lisinopril [Prinivil] 20 mg PO DAILY 10/05/17 Acetaminophen [Tylenol] 650 mg PO Q4H PRN 10/09/17 Cyclobenzaprine HCl 5 mg PO TID 10/09/17 Diphenoxylate HCl/Atropine [Lomotil Tablet] 1 each PO ASDIR 10/09/17 Metoprolol Tartrate [Lopressor -] 25 mg PO DAILY 10/09/17 Vit 108/Iron/Folic AC [ One Tablet] 1 each PO DAILY 10/09/17 Sumatriptan Succinate [Imitrex] 25 mg PO ASDIR 10/09/17 Amoxicillin/Potassium Clav [Augmentin 875-125 Tablet] 1 each PO BID #20 tablet 10/11/17 Asthma: Yes (No recent relapse) Cardiac Disorders: Yes (Heart attack at age 32) COPD: No Diabetes: No GI Disorders: No Disorders: No HTN: Yes (on meds) Kidney Stones: No Liver Disease: No Psychiatric Problems: Yes (BIPOLAR ANXIETY DEPRESSION) Seizures: No Thyroid Disease: No - Surgical History Abdominal Surgery: Yes (GASTRIC BYPASS 2006) Appendectomy: No Cardiac Surgery: No Cholecystectomy: No Lung Surgery: No Neurologic Surgery: No Orthopedic Surgery: No - Suicide/Smoking/Psychosocial Hx Smoking History: Unknown if ever smoked Have you smoked in the past 12 months: No Number of Cigarettes Smoked Daily: 2 'Breaking Loose' booklet given: 10/05/17 Hx Alcohol Use: No Drug/Substance Use Hx: No Substance Use Type: Alcohol Hx Substance Use Treatment: Yes (Detox ) Review of Systems - Review of Systems Able to Perform ROS?: Yes Is the patient limited Mohawk proficient: No Constitutional: No: Symptoms Reported HEENTM: No: Symptoms Reported Respiratory: No: Symptoms reported Cardiac (ROS): No: Symptoms Reported ABD/GI: No: Symptoms Reported : No: Symptoms Reported Musculoskeletal: No: Symptoms Reported Integumentary: No: Symptoms Reported Neurological: No: Symptoms reported Endocrine: No: Symptoms Reported Hematologic/Lymphatic: No: Symptoms Reported *Physical Exam - Physical Exam General Appearance: Yes: Disheveled, Alcohol on Breath HEENT: positive: Normal ENT Inspection Neck: positive: Trachea midline, Supple Respiratory/Chest: positive: Lungs Clear, Normal Breath Sounds. negative: Respiratory Distress, Accessory Muscle Use Cardiovascular: positive: Regular Rhythm, Regular Rate. negative: Murmur Gastrointestinal/Abdominal: positive: Normal Bowel Sounds, Soft. negative: Tender Musculoskeletal: positive: Normal Inspection. negative: CVA Tenderness Extremity: positive: Normal Inspection Integumentary: positive: Normal Color, Dry, Warm Neurologic: positive: Alert, Normal Response ED Treatment Course - LABORATORY CBC & Chemistry Diagram: 10/11/17 21:00 10/11/17 22:30 Medical Decision Making - Medical Decision Making 10/11/17 21:33 A/P: 41-year-old woman with alcohol intoxication Patient disheveled and has alcohol on breath. Normal ENT inspection Palpation of the skull reveals no deformities or obvious head trauma Lungs clear to auscultation bilaterally Abdomen soft nontender nondistended. No CVA tenderness elicited Given patient with positive blood cultures within the past week and has not filled her outpatient prescription for antibiotics I will collect laboratory testing including lactic acid, IV fluids, IV ceftriaxone. Patient will likely be admitted. 10/12/17 01:15 Subtherapeutic INR and bacteremia discussed with patient who agrees with admission. I will contact hospitalist for admission. 10/12/17 01:43 Case discussed with Gladis Andino who accepts patient for admission. *DC/Admit/Observation/Transfer Diagnosis at time of Disposition: Bacteremia due to Escherichia coli, Subtherapeutic international normalized ratio (INR) UTI (urinary tract infection) Qualifiers: Urinary tract infection type: acute cystitis Hematuria presence: without hematuria Qualified Code(s): N30.00 - Acute cystitis without hematuria EtOH dependence Qualifiers: Substance use status: uncomplicated Qualified Code(s): F10.20 - Alcohol dependence, uncomplicated - Discharge Dispostion Condition at time of disposition: Fair Decision to Admit order: Yes - Referrals - Patient Instructions - Post Discharge Activity
[2017-10-11] MEDS ORDERED: SODIUM CHLORIDE 1,000 ML IV STA ×2 (21:35→22:50)
[2017-10-11] MEDS ORDERED: THIAMINE HCL 200 MG/2 ML VIAL IVPB ONE (21:35)
[2017-10-11] MEDS ORDERED: CEFTRIAXONE 1 GM/50 ML BAG ONE (22:09)
[2017-10-11 22:16] LABS: BASO % 0.4 % (0-2.0); HEMATOCRIT 29.4 % (32.4-45.2); LYMPH % 9.9 % (8-40); MCH 29.5 pg (25.7-33.7); MEAN CELL VOLUME 86.9 fl (80-96); MEAN PLT VOLUME 8.3 fl (7.5-11.1); MONO % 14.1 % (3.8-10.2); NEUT % 73.6 % (42.8-82.8); PLATELET COUNT 208 K/MM3 (134-434); RBC 3.38 M/mm3 (3.60-5.2); RDW 19.3 % (11.6-15.6); WHITE BLOOD COUNT 8.2 K/mm3 (4.0-10.0)
[2017-10-12 00:01] LABS: ALBUMIN 1.8 g/dl (3.4-5.0); ALK PHOS 182 U/L (45-117); ANION GAP 15 (8-16); BILIRUBIN,TOTAL 0.3 mg/dL (0.2-1.0); BLOOD UREA NITROGEN 25 mg/dL (7-18); CALCIUM 7.2 mg/dL (8.5-10.1); CHLORIDE 109 mmol/L (98-107); CO2 18 mmol/L (21-32); GLUCOSE,RANDOM 75 mg/dL (74-106); POTASSIUM 3.5 mmol/L (3.5-5.1); SGOT/AST 44 U/L (15-37); SGPT/ALT 16 U/L (12-78); SODIUM 142 mmol/L (136-145)
[2017-10-12 00:25] LABS: INR 1.08 (0.82-1.09); PROTHROMBIN TIME (PATIENT) 12.2 SEC (9.7-13.0)
[2017-10-12] MEDS ORDERED: ENOXAPARIN NA (PORCINE) 80 MG/0.8 ML DISP.SYRIN SQ ONE ×2 (01:02→01:29)
[2017-10-12] MEDS ORDERED: ONDANSETRON 4 MG/2 ML VIAL IVPUSH ONE (01:18)
[2017-10-12] MEDS ORDERED: ONDANSETRON 4 MG/2 ML VIAL ONE (01:31)
--- NOTE | 2017-10-12 01:39 | HP ---
CHIEF COMPLAINT: PCP: none HISTORY OF PRESENT ILLNESS: 41yo woman with PMH of recently diagnosed PE/DVT at [facility] 3 weeks ago (d/c on Coumadin, non-compliant), HTN, depression, asthma, alcohol abuse, who presented here 2 days ago (10/09) from [facility] for treatment of UTI/HEAVEN, but left AMA, and now presents again with abdominal pain, fever, and acute alcohol intoxication. During prior work-up on 10/09, she was found to have UTI with + culture (start on Amoxicillin PO at [facility]) and 1 of 2 blood cultures + E.coli. Reports nausea and 1 x NBNB emesis prior to arrival. Endorses dysuria. Last took Coumadin 3 weeks while admitted at [facility]. ER course was notable for: (1) VS: T 98.1, BP 136/84, HR 110, RR 17, pSaO2 95% on RA (2) INR 1.08, Lactate 3.5, EtOH Quant 241.79 (3) Given 1 x dose Ceftriaxone Recent Travel: none PAST MEDICAL HISTORY: see HPI PAST SURGICAL HISTORY: gastric sleeve bypass Social History: Smoking: former, <1/2 pack per day, last smoked 2 weeks ago Alcohol: 1 pint Vodka per day, last drink 10/11 Drugs: denies IVDU Family History: non-contributory Allergies lactose Allergy (Severe, Verified 10/11/17 23:14) Vomiting peanut Allergy (Severe, Verified 10/11/17 23:14) Hives HOME MEDICATIONS: Home Medications Medication Instructions Recorded Quetiapine Fumarate [Seroquel -] 100 mg PO HS #30 tab 04/28/15 Gabapentin 800 mg PO TID 10/05/17 Lisinopril [Prinivil] 20 mg PO DAILY 10/05/17 Acetaminophen [Tylenol] 650 mg PO Q4H PRN 10/09/17 Cyclobenzaprine HCl 5 mg PO TID 10/09/17 Diphenoxylate HCl/Atropine 1 each PO ASDIR 10/09/17 [Lomotil Tablet] Metoprolol Tartrate [Lopressor -] 25 mg PO DAILY 10/09/17 Vit 108/Iron/Folic AC 1 each PO DAILY 10/09/17 [ One Tablet] Sumatriptan Succinate [Imitrex] 25 mg PO ASDIR 10/09/17 Amoxicillin/Potassium Clav 1 each PO BID #20 tablet 10/11/17 [Augmentin 875125 Tablet] REVIEW OF SYSTEMS CONSTITUTIONAL: fever, chills Absent: , diaphoresis, generalized weakness, malaise, loss of appetite, weight change HEENT: Absent: rhinorrhea, nasal congestion, throat pain, throat swelling, difficulty swallowing, mouth swelling, ear pain, eye pain, visual changes CARDIOVASCULAR: Absent: chest pain, syncope, palpitations, irregular heart rate, lightheadedness , peripheral edema RESPIRATORY: shortness of breath Absent: cough, , dyspnea with exertion, orthopnea, wheezing, stridor, hemoptysis GASTROINTESTINAL: abdominal pain, abdominal distension, nausea, vomiting Absent: , diarrhea, constipation, melena, hematochezia GENITOURINARY: dysuria, Absent: frequency, urgency, hesitancy, hematuria, flank pain, genital pain MUSCULOSKELETAL: back pain Absent: myalgia, arthralgia, joint swelling, , neck pain SKIN: Absent: rash, itching, pallor HEMATOLOGIC/IMMUNOLOGIC: Absent: easy bleeding, easy bruising, lymphadenopathy, frequent infections ENDOCRINE: Absent: unexplained weight gain, unexplained weight loss, heat intolerance, cold intolerance NEUROLOGIC: Absent: headache, focal weakness or paresthesias, dizziness, unsteady gait, seizure, mental status changes, bladder or bowel incontinence PSYCHIATRIC: Absent: anxiety, depression, suicidal or homicidal ideation, hallucinations. PHYSICAL EXAMINATION Vital Signs - 24 hr 10/11/17 23:07 Temperature 98.8 F Pulse Rate 97 H Respiratory 20 Rate Blood Pressure 110/65 O2 Sat by Pulse 99 Oximetry (%) GENERAL: aaox3, mildly anxious HEENT: PERRL, EOMI, sclera anicteric, conjunctiva clear, oropharynx clear without exudates NECK: supple, no cervical LAD LUNGS: CTAB HEART: rrr, normal s1/s2, no m/r/g ABDOMEN: soft, non-distended, +RUQ ttp, +bowel sounds, no guarding or rebound tenderness, no HSM MUSCULOSKELETAL: Normal range of motion at all joints. No bony deformities or tenderness. No CVA tenderness. UPPER EXTREMITIES: 2+ pulses, warm, well-perfused. No cyanosis. No clubbing. No peripheral edema. LOWER EXTREMITIES: 2+ DP pulses, wwp, R calf circumference > L, no calf tenderness, no peripheral edema NEUROLOGICAL: Cranial nerves II-XII intact. Normal speech. motor strength 5/5 in all 4 extremities, distal sensation intact SKIN: Warm, dry, normal turgor, no rashes or lesions noted CBC, BMP 10/11/17 21:00 10/11/17 22:30 Hepatic Panel Total Bilirubin 0.3 mg/dL (0.2-1.0) D 10/11/17 22:30 AST 44 U/L (15-37) H 10/11/17 22:30 ALT 16 U/L (12-78) 10/11/17 22:30 Alkaline Phosphatase 182 U/L (45-117) H 10/11/17 22:30 Albumin 1.8 g/dl (3.4-5.0) L 10/11/17 22:30 INR, PTT INR 1.08 (0.82-1.09) 10/11/17 22:30 Laboratory Tests 10/11/17 10/11/17 21:00 21:00 Lactic Acid 3.5 H* Alcohol, Quantitative 241.79 H* ASSESSMENT/PLAN: 41yo woman with PMH of recently diagnosed PE/DVT (on Coumadin, non-compliant), HTN, depression, asthma, EtOH who p/w with E. coli bacteremia likely 2/2 UTI and lactic acidosis. #sepsis due to E.coli bacteremia 2/2 UTI, lactic acidosis -Start Zosyn -IVF -Repeat lactate in AM -2D ECHO to r/o endocarditis -Tylenol PRN for pain or fever -Zofran PRN for nausea #RUQ ttp, r/o biliary/liver pathology -RUQ sono to r/o acute pathology -Serial abdominal exams #EtOH withdrawal -Start Librium protocol -Give 1x Banana bag, then daily Thiamine, folic acid -Check Mg, Phos #PE/DVT, subtherapeutic INR -Continue with Lovenox 80mg SQ Q12 for now; consider starting patient on NOAC pending insurance coverage #FEN NS@83cc/hr Check Mg, Phos Na controlled diet #PPX DVT - on Lovenox BID #DISPO: m/s FULL code d/w Dr. Lan Visit type - Emergency Visit Emergency Visit: Yes ED Registration Date: 10/12/17 Care time: The patient presented to the Emergency Department on the above date and was hospitalized for further evaluation of their emergent condition. - New Patient This patient is new to me today: Yes Date on this admission: 10/12/17 - Critical Care Critical Care patient: No Hospitalist Screening - Colonoscopy Questionnaire Colonoscopy Questionnaire: Colonoscopy Questionnaire - Patient: 50 - 75 years old and never had a screening colonoscopy: Unknown History of colon or rectal polyps, or CA: Unknown History of IBD, Crohn's disease or UC: Unknown History of abdominal radiation therapy as a child: Unknown - Relative: 1 with colon or rectal CA, or polyps at age 60 or younger: Unknown Colon or rectal CA diagnosed at age 45 or younger: Unknown Multiple relatives with colon or rectal CA: Unknown - Outcome: Screening Result: Negative Screen
[2017-10-12] MEDS ORDERED: FOLIC ACID INJECTION - 1 MG, THIAMINE HCL 100 MG, MULTIVIT INJECTION ADULT 10 ML in SOD... IVPB ONE (02:37)
[2017-10-12] MEDS ORDERED: BACITRACIN 0.9 GM PACKET ONE ×2 (02:37→04:22)
[2017-10-12] MEDS ORDERED: ONDANSETRON 4 MG/2 ML VIAL IVPUSH PRN (02:40)
[2017-10-12] MEDS ORDERED: chlordiazePOXIDE HCL 25 MG CAPSULE PO ONE (02:42)
[2017-10-12] MEDS ORDERED: chlordiazePOXIDE HCL 25 MG CAPSULE ONE ×2 (03:05→05:23)
[2017-10-12] MEDS ORDERED: PIPERACILLIN/TAZOB 3.375 GM 3.375 GM/50 ML BAG IVPB ONE ×2 (03:57→08:22)
[2017-10-12] MEDS ORDERED: ACETAMINOPHEN 325 MG TABLET (FP) ONE (04:22)
[2017-10-12] MEDS: PIPERACILLIN/TAZOB 3.375 GM 3.375 GM in DEXTROSE 5%-WATER - 50 ML IVPB SCH ×4 (04:23→13:55)
[2017-10-12] MEDS: ACETAMINOPHEN 325 MG TABLET (FP) PO PRN ×3 (04:23→18:48)
[2017-10-12 04:48] LABS: URINE APPEARANCE CLEAR; URINE BILIRUBIN NEGATIVE (<2.0 mg/dL); URINE BLOOD 1+ (NEGATIVE); URINE COLOR STRAW; URINE GLUCOSE (UA) NEGATIVE (NEGATIVE); URINE KETONE NEGATIVE (NEGATIVE); URINE LEUK ESTERASE NEGATIVE (NEGATIVE); URINE NITRITE NEGATIVE (NEGATIVE); URINE PROTEIN NEGATIVE (NEGATIVE); URINE UROBILINOGEN NEGATIVE mg/dL (0.2-1.0)
[2017-10-12 04:54] LABS: URINE BACTERIA RARE /hpf (NONE SEEN); URINE MUCUS RARE
--- NOTE | 2017-10-12 05:20 | PN ---
Teaching Attending Note Name of Resident: Shanice Liang ATTENDING PHYSICIAN STATEMENT I saw and evaluated the patient. I reviewed the resident's note and discussed the case with the resident. I agree with the resident's findings and plan as documented. SUBJECTIVE: Patient is a 41 year old woman with past medical history of Alcohol abuse, PE/ DVT (last month at [facility] on warfarin), asthma, HTN and migraines who presents to the ER with alcohol intoxication. Patient does not remember how much Vodka she drank today but states that it is "not enough to get me drunk." Patient was seen and evaluated in this emergency department multiple times over the past week and was found to have a urinary tract infection with positive blood cultures showing Escherichia coli. Patient denies fevers, chills, abdominal pain , nausea, vomiting, dysuria, hematuria. Its not clear why she was given coumadin for PE rather than a DOAC. OBJECTIVE: Alert and not in acute distress Vital Signs Period Temp Pulse Resp BP Sys/Pelletier Pulse Ox Last 24 Hr 98.8 F-98.8 F 97 20 110/65 99 HEENT: No Jaundice, eye redness or discharge, PERRLA, EOMI. Normocephalic, atraumatic. External ears are normal and hearing is grossly intact. No nasal discharge. Neck: Supple, nontender. No palpable adenopathy or thyromegaly. No JVD Chest: Good effort. Clear to auscultation and percussion. Heart: Regular. No S3, rub or murmur Abdomen: Not distended, soft, RUQ tenderness; No HSM. No rebound or guarding. Normoactive bowel sounds. Ext: Peripheral pulses intact. Right calf edema. Skin: Warm and dry. No petechiae, rash or ecchymosis. Neuro: Alert. Oriented x3. CN 2-12 grossly intact. No tremors. Sensation grossly intact in all four extremities and DTR are symmetric. Current Medications Generic Name Dose Route Start Last Admin Trade Name Freq PRN Reason Stop Dose Admin Acetaminophen 650 mg 10/12/17 02:33 10/12/17 04:23 Tylenol - PO 650 mg Q4H PRN Administration PAIN OR FEVER Chlordiazepoxide HCl 50 mg 10/12/17 05:00 Librium - PO 10/12/17 23:01 [id number] PAM Chlordiazepoxide HCl 25 mg 10/13/17 05:00 Librium - PO 10/13/17 23:01 [id number] PAM Chlordiazepoxide HCl 15 mg 10/14/17 05:00 Librium - PO 10/14/17 23:01 [id number] [facility] Chlordiazepoxide HCl 25 mg 10/12/17 02:42 Librium - PO 10/15/17 02:41 Q4H PRN WITHDRAWAL(CONT SUBST) Enoxaparin Sodium 80 mg 10/12/17 13:00 Lovenox - SQ Q12H PAM Folic Acid 1 mg/ Thiamine HCl 1,000 mls @ 125 mls/hr 10/12/17 02:37 100 mg/ Multivitamins/Minerals IVPB 10/12/17 10:36 10 ml/ Sodium Chloride ONCE ONE Sodium Chloride 1,000 mls @ 83 mls/hr 10/12/17 02:45 Normal Saline - IV ASDIR PAM Piperacillin Sod/Tazobactam 50 mls @ 100 mls/hr 10/12/17 02:45 Sod 3.375 gm/ Dextrose IVPB Q8H-IV [facility] Protocol Piperacillin Sod/Tazobactam 50 mls @ 100 mls/hr 10/12/17 02:45 10/12/17 04:23 Sod 3.375 gm/ Dextrose IVPB 10/13/17 02:44 100 mls/hr Q8H-IV [facility] Administration Ondansetron HCl 4 mg 10/12/17 02:40 Zofran Injection IVPUSH Q6H PRN NAUSEA Multivit/Folic Acid/Iron 1 tab 10/12/17 10:00 Vitamins (Sjr) - PO DAILY [facility] Thiamine HCl 100 mg 10/12/17 22:00 Vitamin B1 - PO [facility] Home Medications Medication Instructions Recorded Quetiapine Fumarate [Seroquel -] 100 mg PO HS #30 tab 04/28/15 Gabapentin 800 mg PO TID 10/05/17 Lisinopril [Prinivil] 20 mg PO DAILY 10/05/17 Acetaminophen [Tylenol] 650 mg PO Q4H PRN 10/09/17 Cyclobenzaprine HCl 5 mg PO TID 10/09/17 Diphenoxylate HCl/Atropine 1 each PO ASDIR 10/09/17 [Lomotil Tablet] Metoprolol Tartrate [Lopressor -] 25 mg PO DAILY 10/09/17 Vit 108/Iron/Folic AC 1 each PO DAILY 10/09/17 [ One Tablet] Sumatriptan Succinate [Imitrex] 25 mg PO ASDIR 10/09/17 Amoxicillin/Potassium Clav 1 each PO BID #20 tablet 10/11/17 [Augmentin 875-125 Tablet] Abnormal Lab Results 10/11/17 10/11/17 10/11/17 21:00 21:00 21:00 RBC 3.38 L Hgb 10.0 L Hct 29.4 L RDW 19.3 H Monocytes % 14.1 H Chloride Carbon Dioxide BUN Lactic Acid 3.5 H* Calcium AST Alkaline Phosphatase Total Protein Albumin Urine Blood Alcohol, Quantitative 241.79 H* 10/11/17 10/12/17 22:30 04:09 RBC Hgb Hct RDW Monocytes % Chloride 109 H Carbon Dioxide 18 L BUN 25 H Lactic Acid Calcium 7.2 L AST 44 H Alkaline Phosphatase 182 H Total Protein 5.0 L Albumin 1.8 L Urine Blood 1+ H Alcohol, Quantitative ASSESSMENT AND PLAN: 1. Sepsis due to UTI - Likely the source of E.coli bacteremia. Will implement sepsis protocol and give bolus IV NS (though lactic acidosis may be due to alcohol intoxication) and monitor lactic acid level. Continue IV Zosyn pending the result of repeat urine and blood cultures. 2. Alcohol intoxication - Placed on alcohol withdrawal protocol with librium PRN , fall precautions, IV banana bag, IV and PO thiamine; check electrolytes and refer to alcohol detox once stabe. 3. DVT/PE - Consult social services designee/supportive employment case manager to confirm her insurance status - may explain why she was not given a DOAC for PE/DVT by the clinicians who diagnosed PE/DVT. Continue Lovenox for now. She has not take coumadin for weeks. Needs intensive medication adherence education and counseling. 4. RUQ tenderness - May signal alcoholic liver disease or gallbladder disease. Get sonogram of upper abdomen and monitor LFTs. 5. DVT prophylaxis - On therapeutic Lovenox for DVT/PE 6. Advance directives - Full code
[2017-10-12] MEDS: chlordiazePOXIDE HCL 25 MG CAPSULE PO SCH ×4 (05:31→23:11)
[2017-10-12 06:47] LABS: BASO % 0.5 % (0-2.0); HEMATOCRIT 24.7 % (32.4-45.2); HEMOGLOBIN 8.4 GM/dL (10.7-15.3); LYMPH % 16.1 % (8-40); MCH 29.7 pg (25.7-33.7); MCHC 34.2 g/dl (32.0-36.0); MEAN CELL VOLUME 86.9 fl (80-96); MEAN PLT VOLUME 7.7 fl (7.5-11.1); MONO % 13.7 % (3.8-10.2); NEUT % 67.7 % (42.8-82.8); PLATELET COUNT 159 K/MM3 (134-434); RBC 2.84 M/mm3 (3.60-5.2); RDW 18.7 % (11.6-15.6); WHITE BLOOD COUNT 6.7 K/mm3 (4.0-10.0)
[2017-10-12 07:18] LABS: ALBUMIN 1.7 g/dl (3.4-5.0); ALK PHOS 213 U/L (45-117); ANION GAP 11 (8-16); BILIRUBIN,TOTAL 0.5 mg/dL (0.2-1.0); BLOOD UREA NITROGEN 19 mg/dL (7-18); CHLORIDE 108 mmol/L (98-107); CO2 21 mmol/L (21-32); CREATININE 0.9 mg/dL (0.55-1.02); GLUCOSE,RANDOM 78 mg/dL (74-106); MAGNESIUM 1.7 mg/dL (1.8-2.4); POTASSIUM 3.3 mmol/L (3.5-5.1); SGOT/AST 77 U/L (15-37); SGPT/ALT 20 U/L (12-78); SODIUM 140 mmol/L (136-145); TOT PROT 4.6 g/dl (6.4-8.2)
[2017-10-12 07:20] LABS: CALCIUM 6.7 mg/dL (8.5-10.1)
[2017-10-12] MEDS ORDERED: MAGNESIUM OXIDE 400 MG TABLET (FP) PO ONE (07:38)
[2017-10-12] MEDS ORDERED: POTASSIUM CHLORIDE TABS 20 MEQ TABLET.ER (FP) PO ONE (07:38)
[2017-10-12 08:00] VITALS: BMI 26.1
[2017-10-12] MEDS: SODIUM CHLORIDE 1,000 ML IV SCH ×2 (08:13→12:40)
[2017-10-12] MEDS: FOLIC ACID 1 MG TABLET (FP) PO SCH ×2 (08:25→10:01)
--- NOTE | 2017-10-12 10:09 | EKG ---
Test Reason : Blood Pressure : / mmHG Vent. Rate : 105 BPM Atrial Rate : 105 BPM P-R Int : 130 ms QRS Dur : 084 ms QT Int : 346 ms P-R-T Axes : 057 -18 048 degrees QTc Int : 457 ms POOR DATA QUALITY, INTERPRETATION MAY BE ADVERSELY AFFECTED SINUS TACHYCARDIA OTHERWISE NORMAL ECG WHEN COMPARED WITH ECG OF 09-OCT-2017 13:53, NO SIGNIFICANT CHANGE WAS FOUND Confirmed by SASHA MAXWELL MD ([id number]) on 10/12/2017 10:08:50 AM Referred By: Confirmed By:SASHA MAXWELL MD
[2017-10-12 10:48] LABS: PHOSPHOROUS 2.8 mg/dL (2.5-4.9)
[2017-10-12 11:16] LABS: URINE APPEARANCE CLEAR; URINE BILIRUBIN NEGATIVE (<2.0 mg/dL); URINE BLOOD 1+ (NEGATIVE); URINE COLOR STRAW; URINE GLUCOSE (UA) NEGATIVE (NEGATIVE); URINE KETONE NEGATIVE (NEGATIVE); URINE LEUK ESTERASE NEGATIVE (NEGATIVE); URINE NITRITE NEGATIVE (NEGATIVE); URINE PROTEIN NEGATIVE (NEGATIVE); URINE UROBILINOGEN NEGATIVE mg/dL (0.2-1.0)
[2017-10-12 11:20] LABS: EPI CELLS RARE /HPF (FEW)
[2017-10-12] MEDS ORDERED: PIPERACILLIN/TAZOBACTAM 3.375 GM VIAL IVPB ONE (12:31)
[2017-10-12] MEDS ORDERED: DEXTROSE 5%-WATER - 50 ML IVPB ONE (12:31)
[2017-10-12] MEDS: PRENATAL VITAMINS W/ FOLIC ACID TABLET (FP) PO SCH (12:40)
[2017-10-12 12:57] LABS: URINE AMPHETAMINES NEGATIVE ng/ml (CUTOFF=500)
[2017-10-12 12:58] LABS: COCAINE, UR NEGATIVE ng/ml (CUTOFF=300); OPIATES, URI NEGATIVE ng/ml (CUTOFF=300); PHENCYCLIDINE,URINE NEGATIVE ng/ml (CUTOFF=25); URINE BARBITURATES NEGATIVE ng/ml (CUTOFF=200)
[2017-10-12 12:59] LABS: METHADONE, UR NEGATIVE ng/ml (CUTOFF=300)
[2017-10-12] MEDS ORDERED: ENOXAPARIN NA (PORCINE) 80 MG/0.8 ML DISP.SYRIN SQ SCH ×2 (13:00→22:00)
[2017-10-12 13:01] LABS: URINE BENZODIAZEPINES POSITIVE ng/ml (CUTOFF=200)
--- NOTE | 2017-10-12 13:15 | PN ---
Progress Note (short form) - Note Progress Note: ID 41 year old female says HIV negative admitted with E Coli bacteremia and UTI. Says dysuria back pain abd pain Febrile 101 Detoxing from alcohol and denies drug use Alert NAD Selected Entries 10/12/17 09:27 Temperature 101 F H Pulse Rate 89 Respiratory 20 Rate Blood Pressure 156/96 HEENT Herpectic lesion lip Lung Clear Cor S1 S2 RR Abd Soft tender lower abd Ext Bilateral CVA Microbiology 10/09/17 13:05 Blood - Peripheral Venous Blood Culture - Final Escherichia Coli 10/07/17 15:40 Urine - Urine Clean Catch Urine Culture - Final Escherichia Coli Laboratory Tests 10/11/17 10/11/17 10/11/17 21:00 21:00 22:30 WBC Hgb Plt Count INR 1.08 Lactic Acid 3.5 H* AST ALT Alkaline Phosphatase Total Protein Albumin Benzodiazepines Screen Alcohol, Quantitative 241.79 H* 10/12/17 10/12/17 10/12/17 06:21 06:21 09:54 WBC 6.7 Hgb 8.4 L D Plt Count 159 D INR Lactic Acid AST 77 H ALT 20 Alkaline Phosphatase 213 H Total Protein 4.6 L Albumin 1.7 L Benzodiazepines Screen Positive Alcohol, Quantitative Assessment Pyelonephritis E Coli bacteremia Hereps Labials Alcohol detox Homeless Plan Ceftriaxone 2 grs q 2 4 H Renal sonogram HIV test Hepatitis C screen Ze BERNAL Problem List - Problems (1) UTI (urinary tract infection) Code(s): N39.0 - URINARY TRACT INFECTION, SITE NOT SPECIFIED Qualifiers: Urinary tract infection type: acute cystitis Hematuria presence: without hematuria Qualified Code(s): N30.00 - Acute cystitis without hematuria (2) Bacteremia due to Escherichia coli Code(s): R78.81 - BACTEREMIA (3) Herpes labialis Code(s): B00.1 - HERPESVIRAL VESICULAR DERMATITIS
--- NOTE | 2017-10-12 14:59 | CON.GI ---
Consult Consult Specialty:: GI Reason for Consultation:: abnormal liver chemistry, ultrasound - History of Present Illness History of Present Illness: chart reviewed. Events noted. As per initial intake: 41yo woman with PMH of recently diagnosed PE/DVT at [place] 3 weeks ago (d/c on Coumadin, non- compliant), HTN, depression, asthma, alcohol abuse, who presented here 2 days ago (10/09) from [facility] for treatment of UTI/HEAVEN, but left AMA, and now presents again with abdominal pain, fever, and acute alcohol intoxication. During prior work-up on 10/09, she was found to have UTI with + culture (start on Amoxicillin PO at [facility]) and 1 of 2 blood cultures + E.coli. Reports nausea and 1 x NBNB emesis prior to arrival. Endorses dysuria. Last took Coumadin 3 weeks ago while admitted at [place]. ER course was notable for: (1) VS: T 98.1, BP 136/84, HR 110, RR 17, pSaO2 95% on RA (2) INR 1.08, Lactate 3.5, EtOH Quant 241.79 (3) Given 1 x dose Ceftriaxone At the time of this encountered the patient does not appear to be distress, or discomfort. Reports feeling tired and refuses to answer questions. workup revealed mild, AST predominant transaminitis, elevated alk phos, normal bilirubin, platelets. Ultrasound of the liver reports dilated CBD without obvious defects. Liver parenchymal changes consistent with either fatty infiltrate, or inflammatory process. - History Source History Provided By: Medical Record - Past Medical History ...LMP: 09/23/17 ...: No - Alcohol/Substance Use Hx Alcohol Use: Yes - Smoking History Smoking history: Former smoker Have you smoked in the past 12 months: No Aproximately how many cigarettes per day: 2 If you are a former smoker, when did you quit?: 2017 Home Medications - Allergies Allergies/Adverse Reactions: Allergies Allergy/AdvReac Type Severity Reaction Status Date / Time lactose Allergy Severe Vomiting Verified 10/11/17 23:14 peanut Allergy Severe Hives Verified 10/11/17 23:14 - Home Medications Home Medications: Ambulatory Orders Quetiapine Fumarate [Seroquel -] 100 mg PO HS #30 tab 04/28/15 Gabapentin 800 mg PO TID 10/05/17 Lisinopril [Prinivil] 20 mg PO DAILY 10/05/17 Acetaminophen [Tylenol] 650 mg PO Q4H PRN 10/09/17 Cyclobenzaprine HCl 5 mg PO TID 10/09/17 Diphenoxylate HCl/Atropine [Lomotil Tablet] 1 each PO ASDIR 10/09/17 Metoprolol Tartrate [Lopressor -] 25 mg PO DAILY 10/09/17 Vit 108/Iron/Folic AC [ One Tablet] 1 each PO DAILY 10/09/17 Sumatriptan Succinate [Imitrex] 25 mg PO ASDIR 10/09/17 Amoxicillin/Potassium Clav [Augmentin 875-125 Tablet] 1 each PO BID #20 tablet 10/11/17 Family Disease History - Family Disease History Family History: Unremarkable Review of Systems Unable to obtain ROS, reason: Uncooperative Findings/Remarks: Per chart Physical Exam-GI Vital Signs: Vital Signs Temperature 101 F H 10/12/17 09:27 Pulse Rate 89 10/12/17 09:27 Respiratory Rate 20 10/12/17 09:27 Blood Pressure 156/96 10/12/17 09:27 O2 Sat by Pulse Oximetry (%) 99 10/11/17 23:07 Constitutional: Yes: No Distress, Calm Eyes: No: Sclera Icterus HENT: Yes: Atraumatic Neck: Yes: Supple Cardiovascular: Yes: Regular Rate and Rhythm Respiratory: Yes: Regular Gastrointestinal Inspection: No: Ascites, Distention ...Auscultate: Yes: Normoactive Bowel Sounds ...Palpate: Yes: Soft. No: Firm/Rigid, Guarding, Mass, Tenderness, Tenderness, Rebound Neurological: Yes: Alert Labs: CBC, BMP 10/12/17 06:21 10/12/17 06:21 INR, PTT INR 1.08 (0.82-1.09) 10/11/17 22:30 Laboratory Last Values WBC 6.7 K/mm3 (4.0-10.0) 10/12/17 06:21 RBC 2.84 M/mm3 (3.60-5.2) L 10/12/17 06:21 Hgb 8.4 GM/dL (10.7-15.3) L D 10/12/17 06:21 Hct 24.7 % (32.4-45.2) L D 10/12/17 06:21 MCV 86.9 fl (80-96) 10/12/17 06:21 MCH 29.7 pg (25.7-33.7) 10/12/17 06:21 MCHC 34.2 g/dl (32.0-36.0) 10/12/17 06:21 RDW 18.7 % (11.6-15.6) H 10/12/17 06:21 Plt Count 159 K/MM3 (134-434) D 10/12/17 06:21 MPV 7.7 fl (7.5-11.1) 10/12/17 06:21 Neutrophils % 67.7 % (42.8-82.8) 10/12/17 06:21 Lymphocytes % 16.1 % (8-40) D 10/12/17 06:21 Monocytes % 13.7 % (3.8-10.2) H 10/12/17 06:21 Eosinophils % 2.0 % (0-4.5) 10/12/17 06:21 Basophils % 0.5 % (0-2.0) 10/12/17 06:21 Nucleated RBC % 0 % (0-0) 10/12/17 06:21 PT with INR 12.20 SEC (9.7-13.0) 10/11/17 22:30 INR 1.08 (0.82-1.09) 10/11/17 22:30 Sodium 140 mmol/L (136-145) 10/12/17 06:21 Potassium 3.3 mmol/L (3.5-5.1) L 10/12/17 06:21 Chloride 108 mmol/L (98-107) H 10/12/17 06:21 Carbon Dioxide 21 mmol/L (21-32) 10/12/17 06:21 Anion Gap 11 (8-16) 10/12/17 06:21 BUN 19 mg/dL (7-18) H 10/12/17 06:21 Creatinine 0.9 mg/dL (0.55-1.02) 10/12/17 06:21 Creat Clearance w eGFR > 60 (>60) 10/12/17 06:21 Random Glucose 78 mg/dL (74-106) 10/12/17 06:21 Lactic Acid 0.5 mmol/L (0.0-2.0) 10/12/17 06:21 Calcium 6.7 mg/dL (8.5-10.1) L* 10/12/17 06:21 Phosphorus 2.8 mg/dL (2.5-4.9) 10/12/17 06:21 Magnesium 1.7 mg/dL (1.8-2.4) L 10/12/17 06:21 Total Bilirubin 0.5 mg/dL (0.2-1.0) D 10/12/17 06:21 AST 77 U/L (15-37) H 10/12/17 06:21 ALT 20 U/L (12-78) 10/12/17 06:21 Alkaline Phosphatase 213 U/L (45-117) H 10/12/17 06:21 Total Protein 4.6 g/dl (6.4-8.2) L 10/12/17 06:21 Albumin 1.7 g/dl (3.4-5.0) L 10/12/17 06:21 Urine Color Straw 10/12/17 09:54 Urine Appearance Clear 10/12/17 09:54 Urine pH 6.0 (5.0-8.0) 10/12/17 09:54 Ur Specific [place] 1.004 (1.001-1.035) 10/12/17 09:54 Urine Protein Negative (NEGATIVE) 10/12/17 09:54 Urine Glucose (UA) Negative (NEGATIVE) 10/12/17 09:54 Urine Ketones Negative (NEGATIVE) 10/12/17 09:54 Urine Blood 1+ (NEGATIVE) H 10/12/17 09:54 Urine Nitrite Negative (NEGATIVE) 10/12/17 09:54 Urine Bilirubin Negative (<2.0 mg/dL) 10/12/17 09:54 Urine Urobilinogen Negative mg/dL (0.2-1.0) 10/12/17 09:54 Ur Leukocyte Esterase Negative (NEGATIVE) 10/12/17 09:54 Urine WBC (Auto) 4 /hpf (3-5) 10/12/17 09:54 Urine RBC (Auto) 2 /hpf (0-3) 10/12/17 09:54 Ur Epithelial Cells Rare /HPF (FEW) 10/12/17 09:54 Urine Bacteria Rare /hpf (NONE SEEN) 10/12/17 04:09 Urine Mucus Rare 10/12/17 04:09 Opiates Screen Negative ng/ml (EVMWUC=139) 10/12/17 09:54 Methadone Screen Negative ng/ml (WHAQQZ=913) 10/12/17 09:54 Barbiturate Screen Negative ng/ml (MWAQUD=999) 10/12/17 09:54 Phencyclidine Screen Negative ng/ml (CUTOFF=25) 10/12/17 09:54 Ur Amphetamines Screen Negative ng/ml (KBEGBO=913) 10/12/17 09:54 MDMA (Ecstasy) Screen Negative ng/ml (BZUKOJ=509) 10/12/17 09:54 Benzodiazepines Screen Positive ng/ml (ADNYLD=304) 10/12/17 09:54 Cocaine Screen Negative ng/ml (KLMXFX=653) 10/12/17 09:54 U Marijuana (THC) Screen Negative ng/ml (CUTOFF=50) 10/12/17 09:54 Alcohol, Quantitative 241.79 mg/dL (0.0-5.0) H* 10/11/17 21:00 HIV 1&2 Antibody Screen Negative 10/12/17 13:45 HIV P24 Antigen Negative 10/12/17 13:45 Imaging - Results Ultrasound: Report Reviewed Problem List - Problems (1) Abnormal liver enzymes Code(s): R74.8 - ABNORMAL LEVELS OF OTHER SERUM ENZYMES (2) Cholestasis Code(s): K83.1 - OBSTRUCTION OF BILE DUCT (3) Abnormal ultrasound of liver Code(s): R93.2 - ABNORMAL FINDINGS ON DX IMAGING OF LIVER AND BILIARY TRACT (4) EtOH dependence Code(s): F10.20 - ALCOHOL DEPENDENCE, UNCOMPLICATED Qualifiers: Substance use status: uncomplicated Qualified Code(s): F10.20 - Alcohol dependence, uncomplicated (5) Alcohol abuse Code(s): F10.10 - ALCOHOL ABUSE, UNCOMPLICATED (6) Alcohol dependence with withdrawal Code(s): F10.239 - ALCOHOL DEPENDENCE WITH WITHDRAWAL, UNSPECIFIED Qualifiers: Complication of substance-induced condition: uncomplicated Qualified Code(s ): F10.230 - Alcohol dependence with withdrawal, uncomplicated Assessment/Plan Given the patient's history and presentation suspect alcoholic fatty liver disease, possibly mild hepatitis. Do not suspect cholangitis. Cannot exclude alcoholic pancreatitis. Obtain MRCP, lipase. Start oral Protonix once daily. Substance withdrawal protocol and counseling. Will follow
--- NOTE | 2017-10-12 15:03 | HOSP ---
Physical Examination Vital Signs: Vital Signs Temperature 101 F H 10/12/17 09:27 Pulse Rate 89 10/12/17 09:27 Respiratory Rate 20 10/12/17 09:27 Blood Pressure 156/96 10/12/17 09:27 O2 Sat by Pulse Oximetry (%) 99 10/11/17 23:07 Findings/Remarks: Subjective: The patient was seen and examined at the bedside, she appears agitated stating "no one understands me". She has complaints of chest tightness and wheezing. Albuterol nebs ordered F/u EKG/troponins Continue Librium detox Current Medications Generic Name Dose Route Start Last Admin Trade Name Freq PRN Reason Stop Dose Admin Acetaminophen 650 mg 10/12/17 02:33 10/12/17 12:40 Tylenol - PO 650 mg Q4H PRN Administration PAIN OR FEVER Albuterol Sulfate 1 amp 10/12/17 17:51 Ventolin 0.083% Nebulizer Soln - NEB Q4H PRN SHORT OF BREATH/WHEEZING Chlordiazepoxide HCl 50 mg 10/12/17 05:00 10/12/17 16:42 Librium - PO 10/12/17 23:01 50 mg [id number] PAM Administration Chlordiazepoxide HCl 25 mg 10/13/17 05:00 Librium - PO 10/13/17 23:01 [id number] PAM Chlordiazepoxide HCl 15 mg 10/14/17 05:00 Librium - PO 10/14/17 23:01 [id number] PAM Chlordiazepoxide HCl 25 mg 10/12/17 02:42 Librium - PO 10/15/17 02:41 Q4H PRN WITHDRAWAL(CONT SUBST) Enoxaparin Sodium 80 mg 10/12/17 13:00 10/12/17 12:48 Lovenox - SQ 80 mg Q12H PAM Administration Folic Acid 1 mg 10/12/17 10:00 10/12/17 10:01 Folic Acid - PO Not Given DAILY PAM Ceftriaxone Sodium 2 gm/ 100 mls @ 200 mls/hr 10/13/17 10:00 Dextrose IVPB DAILY PAM Protocol Labetalol HCl 100 mg 10/12/17 17:50 Normodyne - PO 10/12/17 17:51 ONCE ONE Ondansetron HCl 4 mg 10/12/17 02:40 Zofran Injection IVPUSH Q6H PRN NAUSEA Multivit/Folic Acid/Iron 1 tab 10/12/17 10:00 10/12/17 12:40 Vitamins (Sjr) - PO 1 tab DAILY PAM Administration Thiamine HCl 100 mg 10/12/17 22:00 Vitamin B1 - PO HS PAM Valacyclovir HCl 500 mg 10/12/17 22:00 Valtrex - PO BID PAM Objective: Vital Signs Period Temp Pulse Resp BP Sys/Pelletier Pulse Ox Last 24 Hr 98.8 F-101 F 85-97 18-22 110-187/65-118 99-99 Physical Exam: Patient refused CBCD WBC 6.7 K/mm3 (4.0-10.0) 10/12/17 06:21 RBC 2.84 M/mm3 (3.60-5.2) L 10/12/17 06:21 Hgb 8.4 GM/dL (10.7-15.3) L D 10/12/17 06:21 Hct 24.7 % (32.4-45.2) L D 10/12/17 06:21 MCV 86.9 fl (80-96) 10/12/17 06:21 MCHC 34.2 g/dl (32.0-36.0) 10/12/17 06:21 RDW 18.7 % (11.6-15.6) H 10/12/17 06:21 Plt Count 159 K/MM3 (134-434) D 10/12/17 06:21 MPV 7.7 fl (7.5-11.1) 10/12/17 06:21 CMP Sodium 140 mmol/L (136-145) 10/12/17 06:21 Potassium 3.3 mmol/L (3.5-5.1) L 10/12/17 06:21 Chloride 108 mmol/L (98-107) H 10/12/17 06:21 Carbon Dioxide 21 mmol/L (21-32) 10/12/17 06:21 Anion Gap 11 (8-16) 10/12/17 06:21 BUN 19 mg/dL (7-18) H 10/12/17 06:21 Creatinine 0.9 mg/dL (0.55-1.02) 10/12/17 06:21 Creat Clearance w eGFR > 60 (>60) 10/12/17 06:21 Random Glucose 78 mg/dL (74-106) 10/12/17 06:21 Calcium 6.7 mg/dL (8.5-10.1) L* 10/12/17 06:21 Total Bilirubin 0.5 mg/dL (0.2-1.0) D 10/12/17 06:21 AST 77 U/L (15-37) H 10/12/17 06:21 ALT 20 U/L (12-78) 10/12/17 06:21 Alkaline Phosphatase 213 U/L (45-117) H 10/12/17 06:21 Total Protein 4.6 g/dl (6.4-8.2) L 10/12/17 06:21 Albumin 1.7 g/dl (3.4-5.0) L 10/12/17 06:21 Microbiology 10/09/17 13:05 Blood - Peripheral Venous Blood Culture - Final Escherichia Coli 10/09/17 13:05 Blood - Peripheral Venous Blood Culture - Preliminary NO GROWTH OBTAINED AFTER 72 HOURS, INCUBATION TO CONTINUE FOR 2 DAYS. Assessment: This is a 41 year old female with PMHx of alcohol abuse, recently diagnosed PE/DVT (diagnosed at [facility]), HTN, depression, asthma, who presented to the ED after being called for having + e.coli bacteremia Plan: 1) E.coli bacteremia - Repeat blood cultures sent today, follow - Continue Ceftriaxone 2g IVPB daily - Appreciate ID consult 2) Acute alcohol withdrawal - Continue Librium taper - Continue thiamine - Continue folic acid - Continue multivitamin - Appreciate detox consult 3) Hepatomegaly, CBD dilatation - Per GI, do not suspect cholangitis, cannot exclude alcoholic pancreatitis - F/u MRCP - F/u lipase - Protonix daily - Appreciate GI consult 4) Asthma - Mild wheezing today with some subjective chest tightness - Albuterol nebs - Continue to monitor. Consider systemic steroids if worsening 5) PE/DVT - Diagnosed 3 weeks ago at [facility], patient reportedly started on Coumadin? - F/u records from outside hospital - Continue Lovenox 70mg sq bid 6) F/E/N: - Regular diet - Hypokalemia: replete - Hypomagnesemia: replete 7) Prophylaxis: - On full dose Lovenox - OOB ambulating 8) Dispo: - Requires continued inpatient care CODE STATUS: FULL CODE Labs: CBC, BMP 10/12/17 06:21 10/12/17 06:21
--- NOTE | 2017-10-12 17:09 | CONSULT ---
Consult Detox [facility] Reason for Current Admission/Consult: 41 y/o f pt with longstading hx of alcohol dependency requiring alcohol detox with librium. Pt has + cx's uti/ uro sepsis . - History History of Present Illness: 41 y/o f pt began drinking alcohol age 7. By age 11 she reports dependency. Pt has h/o multiple admissions to detox and rehab. Pt last drink was 10/11/17 . The pt states she had a blackout on 10/10/17 . Pt signed out on 10/09/17 from [facility] and returned to Ed on 10/11/17. 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: Yes: Migraine Cardio/Vascular: Yes: HTN, [place] Pulmonary: Yes: Pulmonary Embolus Gastrointestinal: Yes: Other ...LMP: 09/23/17 ...: No Psych: Yes: Bipolar Musculoskeletal: Yes: Chronic low back pain Dermatology: Yes: Eczema - Past Surgical History Past Surgical History: Yes: Additional Surgical History: gastric bypass - Significant Medical Findings: Vital Signs Temperature 99 F 10/12/17 17:03 Pulse Rate 85 10/12/17 17:03 Respiratory Rate 20 10/12/17 17:03 Blood Pressure 178/111 10/12/17 17:03 O2 Sat by Pulse Oximetry (%) 99 10/12/17 09:00 female pt aox3, irritable , lying in bed without tremors or diaphoresis skin -ecchymosis upper extremities CIWA Score - CIWA Score Nausea/Vomitin Muscle Tremors: 1-None Visible, but [place] Anxiety: 3 Agitation: 2 Paroxysmal Sweats: 1-Minimal Palms Moist Orientation: 0-Oriented Tacttile Disturbances: 2-Mild Itch/Numbness/Burn Auditory Disturbances: 0-None Visual Disturbances: 0-None Headache: 3-Moderate CIWA-Ar Total Score: 14 Assessment Plan - Diagnosis (1) Chronic alcoholism Status: Chronic (2) Bacteremia due to Escherichia coli Status: Acute (3) UTI (urinary tract infection) Status: Acute Qualifiers: Urinary tract infection type: acute cystitis Hematuria presence: without hematuria Qualified Code(s): N30.00 - Acute cystitis without hematuria (4) Low back pain at multiple sites Status: Chronic (5) Nicotine dependence Status: Chronic Qualifiers: Nicotine product type: cigarettes Substance use status: uncomplicated Qualified Code(s): F17.210 - Nicotine dependence, cigarettes, uncomplicated (6) Anxiety Status: Chronic (7) Bipolar disorder Status: Chronic Qualifiers: Most recent bipolar episode type: most recent episode unspecified type Comment: As per existing records and self-report.Non-adherent to OPD care. (8) Bronchial asthma Status: Chronic Qualifiers: Asthma severity: unspecified severity Asthma persistence: intermittent Asthma complication type: uncomplicated Qualified Code(s): J45.20 - Mild intermittent asthma, uncomplicated (9) Eczema Status: Chronic Qualifiers: Eczema type: unspecified Qualified Code(s): L30.9 - Dermatitis, unspecified - Plan Plan: continue present alcohol detox with librium protocol. in - patient rehab stongly encouraged after resolution of acute medical problems . If in - patient rehab not doable , then out -patient treatment program : ie- AA recommended. - Medication Detox Regimen/Protocol: Librium
[2017-10-12] MEDS ORDERED: LABETALOL HCL 100 MG TABLET (FP) PO ONE (17:50)
[2017-10-12] MEDS ORDERED: ALBUTEROL SO4 0.083% IH SOL 2.5 MG/3 ML VIAL.NEB. NEB PRN (17:51)
[2017-10-12] MEDS ORDERED: MAG HYDROX/AL HYDROX/SIMETH 30 ML UNIT-DOSE CUP PO PRN (19:00)
[2017-10-12] MEDS: THIAMINE HCL 100 MG TABLET (FP) PO SCH (21:28)
[2017-10-12] MEDS: valACYclovir HCL 500 MG TABLET (FP) PO SCH (21:28)
[2017-10-13] MEDS: chlordiazePOXIDE HCL 25 MG CAPSULE PO PRN ×2 (03:33→21:32)
[2017-10-13] MEDS: ACETAMINOPHEN 325 MG TABLET (FP) PO PRN ×4 (03:48→21:31)
[2017-10-13] MEDS: chlordiazePOXIDE HCL 25 MG CAPSULE PO SCH ×4 (05:17→22:41)
--- NOTE | 2017-10-13 08:03 | PN ---
Progress Note (short form) - Note Progress Note: c/o diffuse body aches, CORONA and BRBPR. when she was wiping yesterday noted to have blood on toilet paper. then this AM had bleeding in the toilet assoc iwth clots. requesting her seroquel at night which she typically takes and does not get here. +shadows on the [place], denies Cp, SOB, fever, chills, C/D no auditory hallucinations Current Medications Generic Name Dose Route Start Last Admin Trade Name Freq PRN Reason Stop Dose Admin Acetaminophen 650 mg 10/12/17 02:33 10/13/17 03:48 Tylenol - PO 650 mg Q4H PRN Administration PAIN OR FEVER Al Hydroxide/Mg Hydroxide 30 ml 10/12/17 19:00 10/12/17 19:15 Mylanta Oral Suspension - PO 30 ml Q6H PRN Administration DYSPEPSIA Albuterol Sulfate 1 amp 10/12/17 17:51 Ventolin 0.083% Nebulizer Soln - NEB Q4H PRN SHORT OF BREATH/WHEEZING Chlordiazepoxide HCl 25 mg 10/13/17 05:00 10/13/17 05:17 Librium - PO 10/13/17 23:01 25 mg [id number] PAM Administration Chlordiazepoxide HCl 15 mg 10/14/17 05:00 Librium - PO 10/14/17 23:01 [id number] PAM Chlordiazepoxide HCl 25 mg 10/12/17 02:42 10/13/17 03:33 Librium - PO 10/15/17 02:41 25 mg Q4H PRN Administration WITHDRAWAL(CONT SUBST) Enoxaparin Sodium 70 mg 10/12/17 22:00 10/12/17 21:28 Lovenox - SQ 70 mg BID PAM Administration Folic Acid 1 mg 10/12/17 10:00 10/12/17 10:01 Folic Acid - PO Not Given DAILY [facility] Ceftriaxone Sodium 2 gm/ 100 mls @ 200 mls/hr 10/13/17 10:00 Dextrose IVPB DAILY [facility] Protocol Ondansetron HCl 4 mg 10/12/17 02:40 Zofran Injection IVPUSH Q6H PRN NAUSEA Pantoprazole Sodium 40 mg 10/13/17 10:00 Protonix - PO DAILY [facility] Multivit/Folic Acid/Iron 1 tab 10/12/17 10:00 10/12/17 12:40 Vitamins (Sjr) - PO 1 tab DAILY PAM Administration Thiamine HCl 100 mg 10/12/17 22:00 10/12/17 21:28 Vitamin B1 - PO 100 mg HS PAM Administration Valacyclovir HCl 500 mg 10/12/17 22:00 10/12/17 21:28 Valtrex - PO 500 mg BID PAM Administration Last Vital Signs Temp Pulse Resp BP Pulse Ox 98 F 85 20 133/88 99 10/13/17 06:50 10/13/17 06:50 10/13/17 06:50 10/13/17 06:50 10/12/17 09:00 refused physical exam requested rectal exam which she also refused general lethargic. resting comfortable CBCD WBC 8.8 K/mm3 (4.0-10.0) D 10/13/17 07:00 RBC 2.97 M/mm3 (3.60-5.2) L 10/13/17 07:00 Hgb 8.8 GM/dL (10.7-15.3) L 10/13/17 07:00 Hct 26.1 % (32.4-45.2) L 10/13/17 07:00 MCV 87.6 fl (80-96) 10/13/17 07:00 MCHC 33.6 g/dl (32.0-36.0) 10/13/17 07:00 RDW 18.4 % (11.6-15.6) H 10/13/17 07:00 Plt Count 192 K/MM3 (134-434) D 10/13/17 07:00 MPV 8.7 fl (7.5-11.1) D 10/13/17 07:00 CMP Sodium 141 mmol/L (136-145) 10/13/17 07:00 Potassium 3.4 mmol/L (3.5-5.1) L 10/13/17 07:00 Chloride 108 mmol/L (98-107) H 10/13/17 07:00 Carbon Dioxide 26 mmol/L (21-32) 10/13/17 07:00 Anion Gap 7 (8-16) L 10/13/17 07:00 BUN 8 mg/dL (7-18) 10/13/17 07:00 Creatinine 0.7 mg/dL (0.55-1.02) 10/13/17 07:00 Creat Clearance w eGFR > 60 (>60) 10/13/17 07:00 Calcium 6.7 mg/dL (8.5-10.1) L* 10/12/17 06:21 Total Bilirubin 0.8 mg/dL (0.2-1.0) D 10/13/17 07:00 AST 47 U/L (15-37) H 10/13/17 07:00 ALT 20 U/L (12-78) 10/13/17 07:00 Alkaline Phosphatase 217 U/L (45-117) H 10/13/17 07:00 Total Protein 4.9 g/dl (6.4-8.2) L 10/13/17 07:00 Albumin 1.8 g/dl (3.4-5.0) L 10/13/17 07:00 Microbiology 10/12/17 08:30 Blood - Peripheral Venous Blood Culture - Preliminary NO GROWTH OBTAINED AFTER 24 HOURS, INCUBATION TO CONTINUE FOR 4 DAYS. 10/12/17 08:12 Blood - Peripheral Venous Blood Culture - Preliminary NO GROWTH OBTAINED AFTER 24 HOURS, INCUBATION TO CONTINUE FOR 4 DAYS. A/P 41yo F with PMH continuous ETOH dependence, PE/DVT, HTn and depression was called back to the ER due to +Ecoli Bacteremia and found to be in acute ETOH withdrawals 1. Ecoli bacteremia-Tm 101. repeat Bcx sent. Zosyn switched to Ceftriaxone today. echo done and negative for endocarditis. will f/u Cx. ID on board 2. Acute ETOH withdrawal- CIWA 10. on libirum protocol. requesting hydroxyzine for withdrawal symptoms. will place prn. counselled on risks and early mortality assoc with ETOH use. would benefit form inpatient rehab. staets she is not interested in this time. stated she knows how to stop and has done it before. Detox on board 3. CBD dilation- 8mm dilation. awaiting MRCP. may require ERCP. no more abdominal pain. tolerating regular diet 4. BRBPR- visualized by me with clots in the toilet. Hgb this AM is stable. will do repeat later today. refused physical exam. no hx of colonoscopy will need one on this admission as pt has been on blood thinners for PE/DVT. call placed out to GI to notify. switch to clear liquid diet. 5. hypokalemia- Kcl po 6. hypomagnenesmia- MG IV and po 8. depression- requesting seroquel which is a home medication. QTc on admission prolonged. will repeat EKG. if stable can restart 9. PE/DVT- was on coumadin but stopped it a few months ago. was placed on full dose lovenox here. will hold with current bleeding. explained pt risks of not being anticoagulated. 10. hypocalcemia- Corrected Ca 8.5. will start calcium supplement 11. HTN- elevated yesterday. may be induced from withdrawal. now improved. will cont current management. consider uptitrating medications as needed 12. DVT ppx- place SCD. hold pharmacologic in setting of new bleeding Visit type - Emergency Visit Emergency Visit: Yes ED Registration Date: 10/12/17 Care time: The patient presented to the Emergency Department on the above date and was hospitalized for further evaluation of their emergent condition. - New Patient This patient is new to me today: Yes Date on this admission: 10/13/17 - Critical Care Critical Care patient: No - Discharge Referral Referred to [facility] No
[2017-10-13 08:17] LABS: BASO % 0.5 % (0-2.0); EOS % 1.5 % (0-4.5); HEMATOCRIT 26.1 % (32.4-45.2); HEMOGLOBIN 8.8 GM/dL (10.7-15.3); LYMPH % 14.5 % (8-40); MCH 29.5 pg (25.7-33.7); MCHC 33.6 g/dl (32.0-36.0); MEAN CELL VOLUME 87.6 fl (80-96); MEAN PLT VOLUME 8.7 fl (7.5-11.1); MONO % 8.4 % (3.8-10.2); NEUT % 75.1 % (42.8-82.8); PLATELET COUNT 192 K/MM3 (134-434); RBC 2.97 M/mm3 (3.60-5.2); RDW 18.4 % (11.6-15.6); WHITE BLOOD COUNT 8.8 K/mm3 (4.0-10.0)
[2017-10-13 08:20] LABS: CHLORIDE 108 mmol/L (98-107); POTASSIUM 3.4 mmol/L (3.5-5.1); SODIUM 141 mmol/L (136-145)
[2017-10-13 08:38] LABS: ALBUMIN 1.8 g/dl (3.4-5.0); ALK PHOS 217 U/L (45-117); ANION GAP 7 (8-16); BILIRUBIN,TOTAL 0.8 mg/dL (0.2-1.0); BLOOD UREA NITROGEN 8 mg/dL (7-18); CO2 26 mmol/L (21-32); CREATININE 0.7 mg/dL (0.55-1.02); GLUCOSE,RANDOM 95 mg/dL (74-106); MAGNESIUM 1.5 mg/dL (1.8-2.4); SGOT/AST 47 U/L (15-37); SGPT/ALT 20 U/L (12-78); TOT PROT 4.9 g/dl (6.4-8.2)
[2017-10-13] MEDS ORDERED: DEXTROSE 5%-WATER 100 ML IVPB ONE (09:53)
[2017-10-13] MEDS: FOLIC ACID 1 MG TABLET (FP) PO SCH (10:01)
[2017-10-13] MEDS: CALCIUM 500MG/VIT-D 200 UNITS COMBO TABLET (FP) PO SCH (10:01)
[2017-10-13] MEDS: PANTOPRAZOLE 40 MG TABLET (FP) PO SCH (10:02)
[2017-10-13] MEDS: valACYclovir HCL 500 MG TABLET (FP) PO SCH ×2 (10:02→21:31)
[2017-10-13] MEDS: CEFTRIAXONE 2 GM in DEXTROSE 5%-WATER 100 ML IVPB SCH (10:02)
[2017-10-13] MEDS: PRENATAL VITAMINS W/ FOLIC ACID TABLET (FP) PO SCH (10:02)
[2017-10-13] MEDS ORDERED: MAGNESIUM 2GM/50ML STERILE WATER IVPB IVPB ONE (10:15)
[2017-10-13] MEDS ORDERED: MAGNESIUM OXIDE 400 MG TABLET (FP) PO ONE (10:15)
[2017-10-13] MEDS ORDERED: POTASSIUM CHLORIDE ORAL LIQUID 20 MEQ/15 ML PO ONE (10:15)
[2017-10-13 10:27] LABS: CALCIUM 7.3 mg/dL (8.5-10.1)
[2017-10-13] MEDS ORDERED: MAGNESIUM SULF 50% (8.12 MEQ/2 ML-1 GM VIAL) ONE (10:36)
[2017-10-13] MEDS ORDERED: PT OWN MED DRAWER 7, Y5N ONE ×2 (11:03→16:12)
[2017-10-13 12:32] LABS: HEMATOCRIT 26.6 % (32.4-45.2); HEMOGLOBIN 8.9 GM/dL (10.7-15.3); MCH 29.2 pg (25.7-33.7); MCHC 33.5 g/dl (32.0-36.0); MEAN CELL VOLUME 87.3 fl (80-96); MEAN PLT VOLUME 8.7 fl (7.5-11.1); PLATELET COUNT 202 K/MM3 (134-434); RBC 3.05 M/mm3 (3.60-5.2); RDW 18.3 % (11.6-15.6); WHITE BLOOD COUNT 8.2 K/mm3 (4.0-10.0)
[2017-10-13] MEDS: hydrOXYzine HCL 10 MG TABLET PO PRN (21:32)
[2017-10-13] MEDS: THIAMINE HCL 100 MG TABLET (FP) PO SCH (21:32)
[2017-10-14] MEDS ORDERED: KETOROLAC TROMETHAMINE 30 MG/1 ML VIAL IVPUSH ONE (01:09)
[2017-10-14] MEDS ORDERED: MELATONIN 5 MG TABLETS PO ONE (01:11)
[2017-10-14] MEDS: ACETAMINOPHEN 325 MG TABLET (FP) PO PRN ×3 (01:28→11:57)
[2017-10-14] MEDS: hydrOXYzine HCL 10 MG TABLET PO PRN (01:28)
[2017-10-14] MEDS: chlordiazePOXIDE HCL 25 MG CAPSULE PO PRN (01:28)
[2017-10-14] MEDS ORDERED: METOPROLOL TARTRATE 25 MG TABLET (FP) PO ONE (02:08)
[2017-10-14] MEDS: chlordiazePOXIDE 5 MG CAPSULE PO SCH ×2 (05:29→11:11)
[2017-10-14] MEDS: CALCIUM 500MG/VIT-D 200 UNITS COMBO TABLET (FP) PO SCH (08:11)
[2017-10-14 08:43] LABS: BASO % 0.5 % (0-2.0); EOS % 2.3 % (0-4.5); HEMATOCRIT 25.5 % (32.4-45.2); HEMOGLOBIN 8.6 GM/dL (10.7-15.3); LYMPH % 18.6 % (8-40); MCH 29.6 pg (25.7-33.7); MCHC 33.5 g/dl (32.0-36.0); MEAN CELL VOLUME 88.1 fl (80-96); MEAN PLT VOLUME 8.7 fl (7.5-11.1); MONO % 5.9 % (3.8-10.2); NEUT % 72.7 % (42.8-82.8); PLATELET COUNT 232 K/MM3 (134-434); RBC 2.89 M/mm3 (3.60-5.2); RDW 18.5 % (11.6-15.6); WHITE BLOOD COUNT 8.2 K/mm3 (4.0-10.0)
[2017-10-14 09:09] LABS: ALBUMIN 1.8 g/dl (3.4-5.0); ALK PHOS 202 U/L (45-117); ANION GAP 8 (8-16); BLOOD UREA NITROGEN 6 mg/dL (7-18); CALCIUM 7.3 mg/dL (8.5-10.1); CHLORIDE 108 mmol/L (98-107); CO2 26 mmol/L (21-32); GLUCOSE,RANDOM 76 mg/dL (74-106); MAGNESIUM 1.6 mg/dL (1.8-2.4); POTASSIUM 3.6 mmol/L (3.5-5.1); SODIUM 142 mmol/L (136-145)
[2017-10-14 09:10] LABS: BILIRUBIN,TOTAL 0.5 mg/dL (0.2-1.0); CREATININE 0.6 mg/dL (0.55-1.02); PHOSPHOROUS 3.7 mg/dL (2.5-4.9); SGOT/AST 21 U/L (15-37); SGPT/ALT 14 U/L (12-78)
[2017-10-14] MEDS ORDERED: DEXTROSE 5%-WATER 100 ML IVPB ONE (09:13)
[2017-10-14] MEDS ORDERED: PT OWN MED DRAWER 7, Y5N ONE (09:13)
[2017-10-14] MEDS: PRENATAL VITAMINS W/ FOLIC ACID TABLET (FP) PO SCH (09:17)
[2017-10-14] MEDS: FOLIC ACID 1 MG TABLET (FP) PO SCH (09:17)
[2017-10-14] MEDS: CEFTRIAXONE 2 GM in DEXTROSE 5%-WATER 100 ML IVPB SCH (09:18)
[2017-10-14] MEDS: PANTOPRAZOLE 40 MG TABLET (FP) PO SCH (09:18)
[2017-10-14] MEDS: valACYclovir HCL 500 MG TABLET (FP) PO SCH (09:18)
[2017-10-14 11:48] VITALS: BP 164/104; PULSE 62; TEMP 97.7
--- NOTE | 2017-10-14 13:55 | PN ---
Physical Exam: SUBJECTIVE: Patient seen and examined, wants to sign out AMA. Does not want to stay here any longer. OBJECTIVE: Vital Signs Period Temp Pulse Resp BP Sys/Pelletier Pulse Ox Last 24 Hr 97.6 F-100 F 62-87 18-20 144-164/75-104 100 GENERAL: The patient is awake, alert, and fully oriented, in no acute distress. HEAD: Normal with no signs of trauma. EYES: PERRL, extraocular movements intact, sclera anicteric, conjunctiva clear. No ptosis. ENT: Ears normal, nares patent, oropharynx clear without exudates, moist mucous membranes. NECK: Trachea midline, full range of motion, supple. LUNGS: Breath sounds equal, clear to auscultation bilaterally, no wheezes, no crackles, no accessory muscle use. HEART: Regular rate and rhythm, ABDOMEN: Soft, nontender, nondistended, normoactive bowel sounds, no guarding, no rebound, no hepatosplenomegaly, no masses. EXTREMITIES: no edema. NEUROLOGICAL: Normal speech, gait not observed. PSYCH: Normal mood, normal affect. SKIN: Warm, dry, normal turgor, no rashes or lesions noted Laboratory Results - last 24 hr 10/12/17 10/14/17 10/14/17 13:45 06:30 06:30 WBC 8.2 RBC 2.89 L Hgb 8.6 L Hct 25.5 L MCV 88.1 MCH 29.6 MCHC 33.5 RDW 18.5 H Plt Count 232 MPV 8.7 Neutrophils % 72.7 Lymphocytes % 18.6 D Monocytes % 5.9 Eosinophils % 2.3 Basophils % 0.5 Nucleated RBC % 0 Sodium 142 Potassium 3.6 Chloride 108 H Carbon Dioxide 26 Anion Gap 8 BUN 6 L Creatinine 0.6 Creat Clearance w eGFR > 60 Random Glucose 76 Calcium 7.3 L Phosphorus 3.7 Magnesium 1.6 L Total Bilirubin 0.5 D AST 21 ALT 14 Alkaline Phosphatase 202 H Total Protein 5.0 L Albumin 1.8 L Hep C Ab Diagnostic 0.1 Liver Fibrosis Interp Active Medications Generic Name Dose Route Start Last Admin Trade Name Freq PRN Reason Stop Dose Admin Acetaminophen 650 mg 10/12/17 02:33 10/14/17 11:57 Tylenol - PO 650 mg Q4H PRN Administration PAIN OR FEVER Al Hydroxide/Mg Hydroxide 30 ml 10/12/17 19:00 10/12/17 19:15 Mylanta Oral Suspension - PO 30 ml Q6H PRN Administration DYSPEPSIA Albuterol Sulfate 1 amp 10/12/17 17:51 Ventolin 0.083% Nebulizer Soln - NEB Q4H PRN SHORT OF BREATH/WHEEZING Calcium Carbonate/Cholecalciferol 2 tab 10/13/17 10:00 10/14/17 08:11 Os-Sekou 500+D - PO 2 tab DAILY@0800 PAM Administration Chlordiazepoxide HCl 15 mg 10/14/17 05:00 10/14/17 11:11 Librium - PO 10/14/17 23:01 15 mg [id number] PAM Administration Chlordiazepoxide HCl 25 mg 10/12/17 02:42 10/14/17 01:28 Librium - PO 10/15/17 02:41 25 mg Q4H PRN Administration WITHDRAWAL(CONT SUBST) Folic Acid 1 mg 10/12/17 10:00 10/14/17 09:17 Folic Acid - PO 1 mg DAILY PAM Administration Hydroxyzine HCl 10 mg 10/13/17 09:28 10/14/17 01:28 Atarax - PO 10 mg Q4HWA PRN Administration withdrawal Ceftriaxone Sodium 2 gm/ 100 mls @ 200 mls/hr 10/13/17 10:00 10/14/17 09:18 Dextrose IVPB 200 mls/hr DAILY PAM Administration Protocol Ondansetron HCl 4 mg 10/12/17 02:40 Zofran Injection IVPUSH Q6H PRN NAUSEA Pantoprazole Sodium 40 mg 10/13/17 10:00 10/14/17 09:18 Protonix - PO 40 mg DAILY PAM Administration Multivit/Folic Acid/Iron 1 tab 10/12/17 10:00 10/14/17 09:17 Vitamins (Sjr) - PO 1 tab DAILY PAM Administration Thiamine HCl 100 mg 10/12/17 22:00 10/13/17 21:32 Vitamin B1 - PO 100 mg HS PAM Administration Valacyclovir HCl 500 mg 10/12/17 22:00 10/14/17 09:18 Valtrex - PO 500 mg BID PAM Administration ASSESSMENT/PLAN: The patent has requested to sign out against medical advice. The patient displayed the capacity to make her own medical decisions. Discussed with the patient that the plan is to monitor her labs as she is being treated for bacteremia infection and UTI. She is also being detoxed. Asked her to reconsider leaving AMA as she has a history of PE and is being anticoagulated. Explained that she is risking sudden . Antibiotics and Coumadin called into her pharmacy. She is in agreement to hand picker these meds. I asked her to return to the ER if she changes her mind. The risks regarding leaving the hospital with sepsis, PE (pulmonary embolism) have been discussed. All questions were answered fully. The patient understands the risks and is agreeing to leave against medical advice. Visit type - Emergency Visit Emergency Visit: Yes ED Registration Date: 10/12/17 Care time: The patient presented to the Emergency Department on the above date and was hospitalized for further evaluation of their emergent condition. - New Patient This patient is new to me today: Yes Date on this admission: 10/14/17 - Critical Care Critical Care patient: No - Discharge Referral Referred to [facility] No
--- NOTE | 2017-10-14 22:13 | EKG ---
Test Reason : Blood Pressure : / mmHG Vent. Rate : 086 BPM Atrial Rate : 086 BPM P-R Int : 156 ms QRS Dur : 086 ms QT Int : 402 ms P-R-T Axes : 048 -07 027 degrees QTc Int : 481 ms NORMAL SINUS RHYTHM PROLONGED QT ABNORMAL ECG WHEN COMPARED WITH ECG OF 12-OCT-2017 03:35, NO SIGNIFICANT CHANGE WAS FOUND Confirmed by CURTIS MARSH MD ([id number]) on 10/14/2017 10:13:17 PM Referred By: Dewayne HUDSON Confirmed By:CURTIS MARSH MD
--- NOTE | 2017-10-14 22:24 | EKG ---
Test Reason : Blood Pressure : / mmHG Vent. Rate : 089 BPM Atrial Rate : 089 BPM P-R Int : 152 ms QRS Dur : 088 ms QT Int : 362 ms P-R-T Axes : 056 -11 035 degrees QTc Int : 440 ms NORMAL SINUS RHYTHM NORMAL ECG WHEN COMPARED WITH ECG OF 12-OCT-2017 03:35, NO SIGNIFICANT CHANGE WAS FOUND Confirmed by CURTIS MARSH MD ([id number]) on 10/14/2017 10:24:19 PM Referred By: Confirmed By:CURTIS MARSH MD
--- NOTE | 2017-10-18 16:57 | DS ---
Physical Exam: SUBJECTIVE: Patient seen and examined OBJECTIVE: PHYSICAL EXAM GENERAL: The patient is awake, alert, and fully oriented, in no acute distress. HEAD: Normal with no signs of trauma. EYES: PERRL, extraocular movements intact, sclera anicteric, conjunctiva clear. ENT: Ears normal, nares patent, oropharynx clear without exudates, moist mucous membranes. NECK: Trachea midline, full range of motion, supple. LUNGS: Breath sounds equal, clear to auscultation bilaterally, no wheezes, no crackles, no accessory muscle use. HEART: Regular rate and rhythm, S1, S2 without murmur, rub or gallop. ABDOMEN: Soft, nontender, nondistended, normoactive bowel sounds, no guarding, no rebound, no hepatosplenomegaly, no masses. EXTREMITIES: 2+ pulses, warm, well-perfused, no edema. NEUROLOGICAL: Cranial nerves II through XII grossly intact. Normal speech, gait not observed. PSYCH: Normal mood, normal affect. SKIN: Warm, dry, normal turgor, no rashes or lesions noted. LABS HOSPITAL COURSE: Date of Admission:10/12/17 Date of Discharge: 10/18/17 Discharge Summary Reason For Visit: UTI ETOH DEPENDENCE BACTEREMIA Condition: Poor - Instructions Disposition: AGAINST MEDICAL ADVICE - Home Medications Comprehensive Discharge Medication List: Ambulatory Orders Quetiapine Fumarate [Seroquel -] 100 mg PO HS #30 tab 04/28/15 Gabapentin 800 mg PO TID 10/05/17 Lisinopril [Prinivil] 20 mg PO DAILY 10/05/17 Acetaminophen [Tylenol] 650 mg PO Q4H PRN 10/09/17 Cyclobenzaprine HCl 5 mg PO TID 10/09/17 Diphenoxylate HCl/Atropine [Lomotil Tablet] 1 each PO ASDIR 10/09/17 Metoprolol Tartrate [Lopressor -] 25 mg PO DAILY 10/09/17 Vit 108/Iron/Folic AC [ One Tablet] 1 each PO DAILY 10/09/17 Sumatriptan Succinate [Imitrex] 25 mg PO ASDIR 10/09/17 Amoxicillin/Potassium Clav [Augmentin 875-125 Tablet] 1 each PO BID #20 tablet 10/11/17 Warfarin Sodium [Coumadin] 5 mg PO DAILY #30 tablet 10/14/17 levoFLOXacin [Levaquin -] 500 mg PO DAILY #14 tablet 10/14/17 - Discharge Referral Referred to [facility] No
== END 2017-10-14 13:57 | disposition left against medical advice (07) | DRG 720 ==
LOC: JER 20:57 → JERBED 10-12 01:45 → UNDOADMIN 10-12 01:57 → JERBED 10-12 01:57 → J8W 10-12 08:45
PROVIDERS: ADMIT Internal Medicine; ATTEND Nurse Practitioner Family
PROC: HZ2ZZZZ Detoxification Services for Substance Abuse Treatment (ICD-10-PCS; principal; 2017-10-12)
DX: A41.9 Sepsis, unspecified organism (principal); N39.0 Urinary tract infection, site not specified; F10.239 Alcohol dependence with withdrawal, unspecified; F10.229 Alcohol dependence with intoxication, unspecified; E87.6 Hypokalemia; E83.42 Hypomagnesemia; I10 Essential (primary) hypertension; E83.51 Hypocalcemia; R16.0 Hepatomegaly, not elsewhere classified; E87.2 Acidosis; J45.20 Mild intermittent asthma, uncomplicated; F31.89 Other bipolar disorder; K83.1 Obstruction of bile duct; F41.8 Other specified anxiety disorders; R93.2 Abnormal findings on diagnostic imaging of liver and biliary tract
CPT/HCPCS: 36415; 71045-TC-FY; 74181-TC; 76705-TC; 80053; 80307; 81003; 81015; 82550; 83605; 83690; 83735; 84100; 84484; 85025; 85027; 85610; 87040; 87086; 87389; 93005; 93010; 93306-TC; 99282-25; J7030

== ENCOUNTER 2018-01-22 08:40 | Inpatient (IN) | payer OTHER ==
[2018-01-22 09:56] VITALS: BMI 27.6
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
[2018-01-22] MEDS ORDERED: MENTHOL/PHENOL 1 EACH UD MM PRN (17:07)
[2018-01-22] MEDS ORDERED: MAG HYDROX/AL HYDROX/SIMETH 30 ML UNIT-DOSE CUP PO PRN (17:07)
[2018-01-22] MEDS ORDERED: MAGNESIUM HYDROX 2400MG/30ML ORAL SUSPENSION 30 ML CUP PO PRN (17:07)
[2018-01-22] MEDS ORDERED: MAGNESIUM CITRATE 300 ML BOTTLE PO PRN (17:07)
[2018-01-22] MEDS ORDERED: LOPERAMIDE HCL 2 MG CAPSULE PO PRN (17:07)
[2018-01-22] MEDS ORDERED: guaiFENesin/D-METHORPHAN HB 10 ML UNIT-DOSE CUPS PO PRN (17:07)
[2018-01-22] MEDS ORDERED: ACETAMINOPHEN 325 MG TABLET (FP) PO PRN (17:07)
[2018-01-22] MEDS ORDERED: chlordiazePOXIDE HCL 25 MG CAPSULE PO PRN (17:07)
[2018-01-22] MEDS ORDERED: IBUPROFEN 400 MG TABLET (FP) PO PRN (17:07)
[2018-01-22] MEDS ORDERED: hydrOXYzine PAMOATE 50 MG CAPSULE (FP) PO PRN (17:07)
[2018-01-22] MEDS ORDERED: P-EPHED 60MG/TRIPROLIDI 2.5MG TABLET PO PRN (17:07)
[2018-01-22] MEDS ORDERED: chlordiazePOXIDE HCL 25 MG CAPSULE PO ONE (17:45)
[2018-01-22] MEDS: ASPIRIN COATED 81 MG TABLET.EC PO SCH (18:16)
[2018-01-22 21:12] LABS: URINE APPEARANCE CLOUDY; URINE BILIRUBIN NEGATIVE (<2.0 mg/dL); URINE COLOR YELLOW; URINE GLUCOSE (UA) NEGATIVE (NEGATIVE); URINE KETONE NEGATIVE (NEGATIVE); URINE NITRITE NEGATIVE (NEGATIVE); URINE PROTEIN NEGATIVE (NEGATIVE); URINE UROBILINOGEN NEGATIVE mg/dL (0.2-1.0)
[2018-01-22 21:21] LABS: URINE LEUK ESTERASE 2+ (NEGATIVE)
[2018-01-22 21:23] LABS: EPI CELLS MODERATE /HPF (FEW); URINE BACTERIA MODERATE /hpf (NONE SEEN); URINE HYALINE CAST 48 /lpf; URINE MUCUS FEW
[2018-01-22] MEDS: HYDROCORTISONE 2.5% LOTION - 1 BOTTLE TP SCH (22:12)
[2018-01-22] MEDS: chlordiazePOXIDE HCL 25 MG CAPSULE PO SCH (22:12)
[2018-01-22] MEDS: BACITRACIN 0.9 GM PACKET TP SCH (22:12)
[2018-01-22] MEDS: PETROLATUM, WHITE 30 GM TUBE TP SCH (22:13)
[2018-01-22] MEDS: METHOCARBAMOL 500 MG TABLET PO SCH (22:13)
[2018-01-22] MEDS: IBUPROFEN 600 MG TABLET (FP) PO PRN (22:13)
[2018-01-22] MEDS: THIAMINE HCL 100 MG TABLET (FP) PO SCH (22:13)
[2018-01-22] MEDS: MELATONIN 5 MG TABLETS PO PRN (22:18)
[2018-01-22] MEDS ORDERED: cloNIDine HCL 0.1 MG TABLET PO ONE ×2 (22:45→23:00)
--- NOTE | 2018-01-22 23:01 | PN ---
[facility] Progress Note Note: Patient's blood pressure was B/P 146/120. Patient is asymptomatic Vital Signs Temperature 97.7 F 01/22/18 22:51 Pulse Rate 130 H 01/22/18 22:51 Respiratory Rate 18 01/22/18 22:51 Blood Pressure 146/120 01/22/18 22:51 O2 Sat by Pulse Oximetry (%) Action: Clonindine 0.1mg tablet oral ordered
[2018-01-23] MEDS: chlordiazePOXIDE HCL 25 MG CAPSULE PO SCH ×4 (06:01→22:08)
[2018-01-23] MEDS ORDERED: diphenhydrAMINE HCL 50 MG CAPSULE PO PRN (08:11)
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
[2018-01-23 10:05] LABS: HEMATOCRIT 30.2 % (32.4-45.2); MCH 29.5 pg (25.7-33.7); MCHC 33.1 g/dl (32.0-36.0); MEAN PLT VOLUME 8.5 fl (7.5-11.1); PLATELET COUNT 176 K/MM3 (134-434); RBC 3.39 M/mm3 (3.60-5.2); RDW 14.7 % (11.6-15.6); WHITE BLOOD COUNT 5.5 K/mm3 (4.0-10.0)
[2018-01-23 10:13] LABS: CHLORIDE 102 mmol/L (98-107); SODIUM 141 mmol/L (136-145)
[2018-01-23 10:17] LABS: ALBUMIN 2.5 g/dl (3.4-5.0); ALK PHOS 103 U/L (45-117); ANION GAP 10 MMOL/L (8-16); BILIRUBIN,TOTAL 0.5 mg/dL (0.2-1.0); BLOOD UREA NITROGEN 9 mg/dL (7-18); CALCIUM 7.9 mg/dL (8.5-10.1); CO2 29 mmol/L (21-32); CREATININE 0.6 mg/dL (0.55-1.02); GLUCOSE,RANDOM 75 mg/dL (74-106); SGOT/AST 28 U/L (15-37); SGPT/ALT 16 U/L (12-78); TOT PROT 5.1 g/dl (6.4-8.2)
[2018-01-23] MEDS: METOPROLOL TARTRATE 25 MG TABLET (FP) PO SCH (10:37)
[2018-01-23] MEDS: METHOCARBAMOL 500 MG TABLET PO SCH ×2 (10:37→22:08)
[2018-01-23] MEDS: ASPIRIN COATED 81 MG TABLET.EC PO SCH (10:37)
[2018-01-23] MEDS: QUEtiapine FUMARATE 50 MG TABLET PO SCH (10:37)
[2018-01-23] MEDS: FLUoxetine HCL 20 MG CAPSULE (FP) PO SCH (10:37)
[2018-01-23] MEDS: PRENATAL VITAMINS W/ FOLIC ACID TABLET (FP) PO SCH (10:37)
[2018-01-23] MEDS: HYDROCORTISONE 2.5% LOTION - 1 BOTTLE TP SCH ×2 (10:38→22:07)
[2018-01-23] MEDS: LISINOPRIL 10 MG TABLET (FP) PO SCH (10:38)
[2018-01-23] MEDS: BACITRACIN 0.9 GM PACKET TP SCH ×2 (10:38→22:07)
[2018-01-23] MEDS ORDERED: COLLOIDAL OATMEAL 1 BAR EACH TP PRN (11:01)
--- NOTE | 2018-01-23 11:08 | PN ---
S CIWA - CIWA Score Nausea/Vomitin-Mild Nausea/No Vomiting Muscle Tremors: 4-Moderate,w/Arms Extend Anxiety: 4-Mod. Anxious/Guarded Agitation: 4-Moderately Restless Paroxysmal Sweats: 1-Minimal Palms Moist Orientation: 1-Uncertain about Date Tacttile Disturbances: 2-Mild Itch/Numbness/Burn Auditory Disturbances: 0-None Visual Disturbances: 0-None Headache: 1-Very Mild CIWA-Ar Total Score: 18 [facility] Progress Note (SOAP) Subjective: diarrhea sweat tremor shaking puritus Objective: 01/23/18 11:05 Vital Signs Temperature 97.5 F L 01/23/18 09:22 Pulse Rate 66 01/23/18 09:22 Respiratory Rate 18 01/23/18 09:22 Blood Pressure 121/75 01/23/18 09:22 O2 Sat by Pulse Oximetry (%) Laboratory Last Values WBC 5.5 K/mm3 (4.0-10.0) 01/23/18 07:00 RBC 3.39 M/mm3 (3.60-5.2) L 01/23/18 07:00 Hgb 10.0 GM/dL (10.7-15.3) L 01/23/18 07:00 Hct 30.2 % (32.4-45.2) L D 01/23/18 07:00 MCV 89.0 fl (80-96) 01/23/18 07:00 MCH 29.5 pg (25.7-33.7) 01/23/18 07:00 MCHC 33.1 g/dl (32.0-36.0) 01/23/18 07:00 RDW 14.7 % (11.6-15.6) D 01/23/18 07:00 Plt Count 176 K/MM3 (134-434) D 01/23/18 07:00 MPV 8.5 fl (7.5-11.1) 01/23/18 07:00 Sodium 141 mmol/L (136-145) 01/23/18 07:00 Potassium 4.0 mmol/L (3.5-5.1) 01/23/18 07:00 Chloride 102 mmol/L (98-107) 01/23/18 07:00 Carbon Dioxide 29 mmol/L (21-32) 09/12/18 07:00 Anion Gap 10 MMOL/L (8-16) 01/23/18 07:00 BUN 9 mg/dL (7-18) 01/23/18 07:00 Creatinine 0.6 mg/dL (0.55-1.02) 01/23/18 07:00 Creat Clearance w eGFR > 60 (>60) 01/23/18 07:00 Random Glucose 75 mg/dL (74-106) 01/23/18 07:00 Calcium 7.9 mg/dL (8.5-10.1) L 01/23/18 07:00 Total Bilirubin 0.5 mg/dL (0.2-1.0) 01/23/18 07:00 AST 28 U/L (15-37) 01/23/18 07:00 ALT 16 U/L (12-78) 01/23/18 07:00 Alkaline Phosphatase 103 U/L (45-117) 01/23/18 07:00 Total Protein 5.1 g/dl (6.4-8.2) L 01/23/18 07:00 Albumin 2.5 g/dl (3.4-5.0) L 01/23/18 07:00 Urine Color Yellow 01/22/18 19:30 Urine Appearance Cloudy 01/22/18 19:30 Urine pH 5.0 (5.0-8.0) 01/22/18 19:30 Ur Specific [place] 1.008 (1.001-1.035) 01/22/18 19:30 Urine Protein Negative (NEGATIVE) 01/22/18 19:30 Urine Glucose (UA) Negative (NEGATIVE) 01/22/18 19:30 Urine Ketones Negative (NEGATIVE) 01/22/18 19:30 Urine Blood 3+ (NEGATIVE) H 01/22/18 19:30 Urine Nitrite Negative (NEGATIVE) 01/22/18 19:30 Urine Bilirubin Negative (<2.0 mg/dL) 01/22/18 19:30 Urine Urobilinogen Negative mg/dL (0.2-1.0) 01/22/18 19:30 Ur Leukocyte Esterase 2+ (NEGATIVE) H 01/22/18 19:30 Urine WBC (Auto) 24 /hpf (3-5) 01/22/18 19:30 Urine RBC (Auto) 3 /hpf (0-3) 01/22/18 19:30 Ur Epithelial Cells Moderate /HPF (FEW) 01/22/18 19:30 Urine Bacteria Moderate /hpf (NONE SEEN) 01/22/18 19:30 Hyaline Casts 48 /lpf 01/22/18 19:30 Urine Mucus Few 01/22/18 19:30 lab noted uti low ca++ Assessment: 01/23/18 11:08 withdrawal sx uti hypocalcemia Plan: continue detox oscal bactrim aveeno soap
[2018-01-23] MEDS: SULFAMETHOXAZOLE/TRIMETHOPRIM 800MG/160MG D.S. TABLET PO SCH ×2 (11:24→22:07)
[2018-01-23] MEDS: PETROLATUM, WHITE 30 GM TUBE TP SCH ×2 (11:24→22:09)
[2018-01-23] MEDS: CALCIUM 500MG/VIT-D 200 UNITS COMBO TABLET (FP) PO SCH (11:24)
--- NOTE | 2018-01-23 11:45 | EKG ---
Test Reason : Blood Pressure : / mmHG Vent. Rate : 088 BPM Atrial Rate : 088 BPM P-R Int : 130 ms QRS Dur : 076 ms QT Int : 368 ms P-R-T Axes : 032 -14 120 degrees QTc Int : 445 ms NORMAL SINUS RHYTHM WITH SINUS ARRHYTHMIA T WAVE ABNORMALITY, CONSIDER ANTEROLATERAL ISCHEMIA ABNORMAL ECG WHEN COMPARED WITH ECG OF 13-OCT-2017 11:37, NONSPECIFIC T WAVE ABNORMALITY, WORSE IN INFERIOR LEADS T WAVE INVERSION NOW EVIDENT IN ANTEROLATERAL LEADS Confirmed by DIONI BERANL, HARITHA ([id number]) on 01/23/2018 11:45:22 AM Referred By: Confirmed By:HARITHA WHEATLEY MD
[2018-01-23] MEDS: GABAPENTIN 400 MG CAPSULE (FP) PO SCH ×2 (15:00→22:08)
[2018-01-23] MEDS: hydrOXYzine HCL 25 MG TABLET (FP) PO SCH (22:05)
[2018-01-23] MEDS: QUEtiapine FUMARATE 100 MG TABLET (FP) PO SCH (22:08)
[2018-01-23] MEDS: THIAMINE HCL 100 MG TABLET (FP) PO SCH (22:08)
[2018-01-24] MEDS: chlordiazePOXIDE HCL 25 MG CAPSULE PO SCH ×3 (05:51→16:32)
[2018-01-24] MEDS: GABAPENTIN 400 MG CAPSULE (FP) PO SCH ×3 (05:52→22:08)
[2018-01-24] MEDS: PETROLATUM, WHITE 30 GM TUBE TP SCH ×2 (10:00→22:07)
[2018-01-24] MEDS: FLUoxetine HCL 20 MG CAPSULE (FP) PO SCH (10:42)
[2018-01-24] MEDS: ASPIRIN COATED 81 MG TABLET.EC PO SCH (10:42)
[2018-01-24] MEDS: CALCIUM 500MG/VIT-D 200 UNITS COMBO TABLET (FP) PO SCH (10:42)
[2018-01-24] MEDS: METHOCARBAMOL 500 MG TABLET PO SCH ×2 (10:42→22:07)
[2018-01-24] MEDS: PRENATAL VITAMINS W/ FOLIC ACID TABLET (FP) PO SCH (10:43)
[2018-01-24] MEDS: METOPROLOL TARTRATE 25 MG TABLET (FP) PO SCH (10:43)
[2018-01-24] MEDS: QUEtiapine FUMARATE 50 MG TABLET PO SCH (10:43)
[2018-01-24] MEDS: LISINOPRIL 10 MG TABLET (FP) PO SCH (10:43)
[2018-01-24] MEDS: BACITRACIN 0.9 GM PACKET TP SCH ×2 (10:43→22:05)
[2018-01-24] MEDS: SULFAMETHOXAZOLE/TRIMETHOPRIM 800MG/160MG D.S. TABLET PO SCH ×2 (10:43→22:05)
[2018-01-24] MEDS: HYDROCORTISONE 2.5% LOTION - 1 BOTTLE TP SCH ×2 (10:43→22:06)
--- NOTE | 2018-01-24 14:01 | PN ---
S CIWA - CIWA Score Nausea/Vomitin-Mild Nausea/No Vomiting Muscle Tremors: 4-Moderate,w/Arms Extend Anxiety: 3 Agitation: 3 Paroxysmal Sweats: 1-Minimal Palms Moist Orientation: 0-Oriented Tacttile Disturbances: 1-Very Mild Itch/Numbness Auditory Disturbances: 0-None Visual Disturbances: 0-None Headache: 1-Very Mild CIWA-Ar Total Score: 14 BHS Progress Note (SOAP) Subjective: sweat tremor restlessness trouble sleep at night Objective: 01/24/18 14:02 Vital Signs Temperature 97.5 F L 01/24/18 09:11 Pulse Rate 77 01/24/18 09:11 Respiratory Rate 18 01/24/18 09:11 Blood Pressure 103/60 01/24/18 09:11 O2 Sat by Pulse Oximetry (%) Laboratory Tests 01/22/18 01/23/18 01/23/18 19:30 07:00 07:00 WBC 5.5 RBC 3.39 L Hgb 10.0 L Hct 30.2 L D MCV 89.0 MCH 29.5 MCHC 33.1 RDW 14.7 D Plt Count 176 D MPV 8.5 PT with INR INR Sodium 141 Potassium 4.0 Chloride 102 Carbon Dioxide 29 Anion Gap 10 BUN 9 Creatinine 0.6 Creat Clearance w eGFR > 60 Random Glucose 75 Calcium 7.9 L Total Bilirubin 0.5 AST 28 ALT 16 Alkaline Phosphatase 103 Total Protein 5.1 L Albumin 2.5 L Urine Color Yellow Urine Appearance Cloudy Urine pH 5.0 Ur Specific [place] 1.008 Urine Protein Negative Urine Glucose (UA) Negative Urine Ketones Negative Urine Blood 3+ H Urine Nitrite Negative Urine Bilirubin Negative Urine Urobilinogen Negative Ur Leukocyte Esterase 2+ H Urine WBC (Auto) 24 Urine RBC (Auto) 3 Ur Epithelial Cells Moderate Urine Bacteria Moderate Hyaline Casts 48 Urine Mucus Few RPR Titer 01/23/18 01/24/18 07:00 07:00 WBC RBC Hgb Hct MCV MCH MCHC RDW Plt Count MPV PT with INR Cancelled INR Cancelled Sodium Potassium Chloride Carbon Dioxide Anion Gap BUN Creatinine Creat Clearance w eGFR Random Glucose Calcium Total Bilirubin AST ALT Alkaline Phosphatase Total Protein Albumin Urine Color Urine Appearance Urine pH Ur Specific [place] Urine Protein Urine Glucose (UA) Urine Ketones Urine Blood Urine Nitrite Urine Bilirubin Urine Urobilinogen Ur Leukocyte Esterase Urine WBC (Auto) Urine RBC (Auto) Ur Epithelial Cells Urine Bacteria Hyaline Casts Urine Mucus RPR Titer Nonreactive lab noted inr pending patient is taking coumadin 01/24/18 14:04 01/24/18 14:05 Assessment: 01/24/18 14:05 withdrawal sx Plan: continue detox
[2018-01-24 15:01] LABS: INR 0.88 (0.83-1.09)
--- NOTE | 2018-01-24 18:26 | PN ---
[facility] Progress Note Note: Last Vital Signs Temp Pulse Resp BP Pulse Ox 98.9 F 91 H 18 129/88 01/24/18 17:52 01/24/18 17:52 01/24/18 17:52 01/24/18 17:52 c/o of feeling anxious withdrawal sx one time dose Vistaril 50 mg increase PO fluids continue to monitor
[2018-01-24] MEDS ORDERED: hydrOXYzine PAMOATE 50 MG CAPSULE (FP) PO ONE (18:30)
[2018-01-24] MEDS: hydrOXYzine HCL 25 MG TABLET (FP) PO SCH (22:05)
[2018-01-24] MEDS: chlordiazePOXIDE 5 MG CAPSULE PO SCH (22:06)
[2018-01-24] MEDS: MELATONIN 5 MG TABLETS PO PRN (22:07)
[2018-01-24] MEDS: QUEtiapine FUMARATE 100 MG TABLET (FP) PO SCH (22:07)
[2018-01-24] MEDS: IBUPROFEN 600 MG TABLET (FP) PO PRN (22:08)
[2018-01-24] MEDS: THIAMINE HCL 100 MG TABLET (FP) PO SCH (22:08)
[2018-01-25] MEDS: chlordiazePOXIDE 5 MG CAPSULE PO SCH ×3 (05:39→17:37)
[2018-01-25] MEDS: GABAPENTIN 400 MG CAPSULE (FP) PO SCH ×3 (05:39→22:19)
[2018-01-25] MEDS: CALCIUM 500MG/VIT-D 200 UNITS COMBO TABLET (FP) PO SCH (10:28)
[2018-01-25] MEDS: QUEtiapine FUMARATE 50 MG TABLET PO SCH (10:29)
[2018-01-25] MEDS: PRENATAL VITAMINS W/ FOLIC ACID TABLET (FP) PO SCH (10:29)
[2018-01-25] MEDS: METOPROLOL TARTRATE 25 MG TABLET (FP) PO SCH (10:29)
[2018-01-25] MEDS: ASPIRIN COATED 81 MG TABLET.EC PO SCH (10:29)
[2018-01-25] MEDS: HYDROCORTISONE 2.5% LOTION - 1 BOTTLE TP SCH ×2 (10:29→22:21)
[2018-01-25] MEDS: FLUoxetine HCL 20 MG CAPSULE (FP) PO SCH (10:29)
[2018-01-25] MEDS: SULFAMETHOXAZOLE/TRIMETHOPRIM 800MG/160MG D.S. TABLET PO SCH ×2 (10:29→22:19)
[2018-01-25] MEDS: BACITRACIN 0.9 GM PACKET TP SCH ×2 (10:29→22:19)
[2018-01-25] MEDS: METHOCARBAMOL 500 MG TABLET PO SCH ×2 (10:29→22:21)
[2018-01-25] MEDS: LISINOPRIL 10 MG TABLET (FP) PO SCH (10:29)
[2018-01-25] MEDS: PETROLATUM, WHITE 30 GM TUBE TP SCH ×2 (10:30→23:08)
--- NOTE | 2018-01-25 10:58 | PN ---
[facility] Progress Note (SOAP) Subjective: anxiety sweats Objective: 01/25/18 10:57 Vital Signs Temperature 97.3 F L 01/25/18 10:04 Pulse Rate 85 01/25/18 10:04 Respiratory Rate 16 01/25/18 10:04 Blood Pressure 117/71 01/25/18 10:04 O2 Sat by Pulse Oximetry (%) aaox3 ambulating no acute distress Assessment: 01/25/18 10:57 mild withdrawal sx Plan: continue detox d/c in am
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
[2018-01-25] MEDS: hydrOXYzine PAMOATE 50 MG CAPSULE (FP) PO PRN (15:41)
[2018-01-25] MEDS ORDERED: diphenhydrAMINE HCL 50 MG CAPSULE PO PRN (22:00)
[2018-01-25] MEDS: THIAMINE HCL 100 MG TABLET (FP) PO SCH (22:19)
[2018-01-25] MEDS: QUEtiapine FUMARATE 100 MG TABLET (FP) PO SCH (22:19)
[2018-01-25] MEDS: chlordiazePOXIDE HCL 10 MG CAPSULE PO SCH (22:20)
[2018-01-26] MEDS: GABAPENTIN 400 MG CAPSULE (FP) PO SCH ×2 (05:54→14:01)
[2018-01-26] MEDS: chlordiazePOXIDE HCL 10 MG CAPSULE PO SCH ×2 (05:54→10:53)
[2018-01-26] MEDS: hydrOXYzine PAMOATE 50 MG CAPSULE (FP) PO PRN (06:58)
[2018-01-26 08:59] VITALS: BP 125/65; PULSE 95; TEMP 97.7
[2018-01-26] MEDS ORDERED: ALBUTEROL SO4 8 GM HFA INHALER IH PRN (09:43)
[2018-01-26] MEDS: QUEtiapine FUMARATE 50 MG TABLET PO SCH (10:30)
[2018-01-26] MEDS: METOPROLOL TARTRATE 25 MG TABLET (FP) PO SCH (10:30)
[2018-01-26] MEDS: ASPIRIN COATED 81 MG TABLET.EC PO SCH (10:30)
[2018-01-26] MEDS: PRENATAL VITAMINS W/ FOLIC ACID TABLET (FP) PO SCH (10:31)
[2018-01-26] MEDS: CALCIUM 500MG/VIT-D 200 UNITS COMBO TABLET (FP) PO SCH (10:31)
[2018-01-26] MEDS: FLUoxetine HCL 20 MG CAPSULE (FP) PO SCH (10:31)
[2018-01-26] MEDS: HYDROCORTISONE 2.5% LOTION - 1 BOTTLE TP SCH (10:31)
[2018-01-26] MEDS: METHOCARBAMOL 500 MG TABLET PO SCH (10:31)
[2018-01-26] MEDS: PETROLATUM, WHITE 30 GM TUBE TP SCH (10:31)
[2018-01-26] MEDS: LISINOPRIL 10 MG TABLET (FP) PO SCH (10:31)
[2018-01-26] MEDS: BACITRACIN 0.9 GM PACKET TP SCH (10:31)
[2018-01-26] MEDS: SULFAMETHOXAZOLE/TRIMETHOPRIM 800MG/160MG D.S. TABLET PO SCH (10:31)
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
== END 2018-01-26 13:07 | disposition home or self-care (01) | DRG 775 ==
LOC: YASAS 08:40 → Y6N 17:32
PROC: HZ2ZZZZ Detoxification Services for Substance Abuse Treatment (ICD-10-PCS; principal; 2018-01-22)
DX: F10.230 Alcohol dependence with withdrawal, uncomplicated (principal); F19.24 Other psychoactive substance dependence with psychoactive substance-induced mood disorder; F31.9 Bipolar disorder, unspecified; F41.9 Anxiety disorder, unspecified; F41.0 Panic disorder [episodic paroxysmal anxiety]; G47.00 Insomnia, unspecified; I10 Essential (primary) hypertension; J45.909 Unspecified asthma, uncomplicated; N39.0 Urinary tract infection, site not specified; M54.5 Low back pain; M25.532 Pain in left wrist; L30.9 Dermatitis, unspecified; Z86.718 Personal history of other venous thrombosis and embolism; Z86.711 Personal history of pulmonary embolism; Z79.01 Long term (current) use of anticoagulants; Z87.81 Personal history of (healed) traumatic fracture; Z98.84 Bariatric surgery status; Z91.5 Personal history of self-harm; Z87.891 Personal history of nicotine dependence; Z59.0 Homelessness
CPT/HCPCS: 36415; 80053; 81003; 81015; 85027; 85610; 86593; 93005; 93010; J0735